=== PATIENT | female | born 1955 | race American Indian/Alaskan Native ===

== ENCOUNTER 2021-07-05 00:50 | Inpatient (IN) | payer BC ==
[~2021-07-05] VITALS: Ht 172.7 cm; Wt 117.9 kg
[2021-07-05 23:35] VITALS: BP 125/65
[2021-07-06] MEDS ORDERED: magnesium 4gm in 100ml NS 100 ML IV PRN (00:45)
[2021-07-06] MEDS ORDERED: PERFLUTREN PROTEIN-A MICROSPHR (Optison) 0.22 MG/ML 3ML VIAL IV PRN (00:45)
[2021-07-06] MEDS ORDERED: potassium CL 10mEq/100ml bag 100 ML IV PRN (00:45)
[2021-07-06] MEDS ORDERED: morphine 2 MG/ML inj. syringe IV PRN (00:45)
[2021-07-06] MEDS ORDERED: potassium Cl 20 mEq SR tablet PO PRN ×2 (00:45)
[2021-07-06] MEDS ORDERED: metoclopramide 5 mg/ml inj IV PRN (00:45)
[2021-07-06] MEDS ORDERED: magnesium Cl slow-release 64mg tablet PO PRN (00:45)
[2021-07-06] MEDS ORDERED: magnesium 2GM in 50ml NS 50 ML IV PRN (00:45)
[2021-07-06] MEDS ORDERED: ondansetron/PF 4mg/2ml inj IV PRN (00:45)
[2021-07-06] MEDS: normal saline 1000ml 1,000 ML IV SCH (01:11)
[2021-07-06 02:00] VITALS: BP 130/74
[2021-07-06 06:00] VITALS: BP 106/63
[2021-07-06 06:34] LABS: ANION GAP 7 (8-16); BLOOD UREA NITROGEN 10 MG/DL (7-18); CALCIUM 8.4 MG/DL (8.5-10.1); CHLORIDE 102 MMOL/L (99-107); GLUCOSE 132 MG/DL (70-104); POTASSIUM 3.8 MMOL/L (3.5-5.1); SODIUM 134 MMOL/L (135-145); TOTAL CARBON DIOXIDE 24.6 MMOL/L (24-32); VANCOMYCIN,RANDOM 13.6 UG/ML; eGFR > 90 ML/MIN
[2021-07-06 06:47] LABS: MAGNESIUM 1.9 MG/DL (1.5-2.4); POTASSIUM 3.8 MMOL/L (3.5-5.1)
[2021-07-06] MEDS: piperacillin/tazo 3.375gm/50ml 50 ML IV SCH ×2 (08:13→16:15)
[2021-07-06] MEDS: docusate sod 100mg capsule PO SCH ×2 (08:13→19:42)
[2021-07-06] MEDS: K and/or MAG REPLACEMENT MC SCH ×2 (08:18→19:50)
[2021-07-06] MEDS ORDERED: GABA300C PO (08:50)
[2021-07-06] MEDS ORDERED: LOSA100T57 PO (08:50)
[2021-07-06] MEDS ORDERED: BUPR-317 PO (08:50)
[2021-07-06] MEDS ORDERED: DULO60CA65 PO (08:50)
[2021-07-06] MEDS ORDERED: OMEP20CA16 PO (08:50)
[2021-07-06] MEDS ORDERED: LEVO100T9 PO (08:50)
[2021-07-06] MEDS ORDERED: AMLO5TAB16 PO (08:50)
[2021-07-06] MEDS ORDERED: CHOL500050 PO (08:50)
[2021-07-06 10:00] VITALS: BP 132/74
[2021-07-06] MEDS ORDERED: FERR325T29 PO (12:42)
[2021-07-06] MEDS ORDERED: GABA600T13 PO (12:42)
[2021-07-06 15:00] VITALS: BP 139/64
[2021-07-06] MEDS: acetaminophen 325mg tablet PO PRN (16:15)
[2021-07-06 18:00] VITALS: BP 131/62
--- NOTE | 2021-07-06 18:10 | NUR ---
Problems reprioritized. Patient report given, questions answered & plan of care reviewed with Katy.
[2021-07-06] MEDS: HYDROcodone/acetaminophen 5mg/325mg tablet PO PRN (19:41)
[2021-07-06] MEDS: enoxaparin 40mg/0.4ml syringe SUBCUT SCH (19:42)
[2021-07-06] MEDS: CefTRIAXone 2gm/D5W 50ml BAG 50 ML IV SCH (19:43)
[2021-07-06] MEDS: diatr meglu/diatrizoate 30ml oral sol.-(3 dose) bottle PO SCH (20:52)
[2021-07-06 22:00] VITALS: BP 142/68
[2021-07-07] VITALS (14 sets, daily range): BP systolic 136–160; BP diastolic 60–85
[2021-07-07 06:18] LABS: BASOPHILS % (AUTO) 0.5 % (0-1); EOSINOPHILS # (AUTO) 0.1 X10'3 (0-0.9); HEMATOCRIT 30.6 % (35.0-45.0); HEMOGLOBIN 10.2 g/dl (12.0-16.0); LYMPHOCYTES # (AUTO) 0.7 X10'3 (1.1-4.8); LYMPHOCYTES % (AUTO) 7.6 % (21-51); MEAN CORPUSCULAR HEMOGLOBIN 30.5 PG (27.0-31.0); MEAN CORPUSCULAR HGB CONC 33.2 g/dL (33.0-36.5); MEAN PLATELET VOLUME 9.8 FL (7.4-10.4); MONOCYTES # (AUTO) 0.5 X10'3 (0-0.9); MONOCYTES % (AUTO) 5.6 % (2-12); NEUTROPHILS # (AUTO) 8.3 X10'3 (1.8-7.7); NEUTROPHILS % (AUTO) 85.3 % (42-75); PLATELET COUNT 221 X10'3 (140-440); RED BLOOD COUNT 3.33 X10'6 (4.20-5.60); RED CELL DISTRIBUTION WIDTH 14.2 % (11.5-14.5); WHITE BLOOD COUNT 9.7 X10'3 (4.5-11.0)
--- NOTE | 2021-07-07 06:20 | NUR ---
Problems reprioritized. Patient report given, questions answered & plan of care reviewed with Westley BROCK .
[2021-07-07 06:50] LABS: ALBUMIN 1.9 G/DL (3.4-5.0); ANION GAP 9 (8-16); BLOOD UREA NITROGEN 9 MG/DL (7-18); BUN/CREATININE RATIO 16.4 (6.6-38.0); CHLORIDE 103 MMOL/L (99-107); CREATININE 0.55 MG/DL (0.40-0.90); GLUCOSE 148 MG/DL (70-104); POTASSIUM 3.6 MMOL/L (3.5-5.1); SODIUM 136 MMOL/L (135-145); TOTAL CARBON DIOXIDE 24.5 MMOL/L (24-32); eGFR > 90 ML/MIN
[2021-07-07] MEDS ORDERED: MIDAZolam 1 MG/ML 5ML VIAL IV ONE (08:00)
[2021-07-07] MEDS ORDERED: fentaNYL/PF 50MCG/1 ML 2ML syringe IV ONE (08:00)
[2021-07-07] MEDS ORDERED: glycopyrrolate 0.2mg/ml inj IV ONE (08:00)
[2021-07-07] MEDS: K and/or MAG REPLACEMENT MC SCH ×2 (08:00→20:00)
[2021-07-07] MEDS: CefTRIAXone 2gm/D5W 50ml BAG 50 ML IV SCH (08:03)
[2021-07-07] MEDS: docusate sod 100mg capsule PO SCH ×2 (08:03→20:00)
[2021-07-07] MEDS: diatr meglu/diatrizoate 30ml oral sol.-(3 dose) bottle PO SCH ×2 (08:03→21:13)
[2021-07-07] MEDS ORDERED: iohexol 300mg/ml 100ml inj. ONE (15:29)
[2021-07-07] MEDS ORDERED: VANCOMYCIN LEVEL IV ONE (19:30)
[2021-07-07] MEDS: enoxaparin 40mg/0.4ml syringe SUBCUT SCH (21:14)
[2021-07-08] MEDS: normal saline 1000ml 1,000 ML IV SCH (00:45)
[2021-07-08 02:09] VITALS: BP 131/59
[2021-07-08 06:00] VITALS: BP 111/82
[2021-07-08] MEDS: docusate sod 100mg capsule PO SCH ×2 (07:34→20:51)
[2021-07-08] MEDS: CefTRIAXone 2gm/D5W 50ml BAG 50 ML IV SCH (07:35)
[2021-07-08] MEDS: K and/or MAG REPLACEMENT MC SCH ×2 (07:40→19:22)
[2021-07-08 10:00] VITALS: BP 139/58
[2021-07-08] MEDS: HYDROcodone/acetaminophen 5mg/325mg tablet PO PRN ×2 (11:28→21:09)
[2021-07-08 12:06] LABS: BASOPHILS % (AUTO) 0.4 % (0-1); EOSINOPHILS % (AUTO) 0.4 % (0-6); HEMATOCRIT 29.7 % (35.0-45.0); HEMOGLOBIN 9.9 g/dl (12.0-16.0); LYMPHOCYTES % (AUTO) 10.6 % (21-51); MEAN CORPUSCULAR HEMOGLOBIN 30.3 PG (27.0-31.0); MEAN CORPUSCULAR HGB CONC 33.4 g/dL (33.0-36.5); MEAN CORPUSCULAR VOLUME 90.7 FL (78-98); MEAN PLATELET VOLUME 9.1 FL (7.4-10.4); MONOCYTES # (AUTO) 0.6 X10'3 (0-0.9); MONOCYTES % (AUTO) 6.3 % (2-12); NEUTROPHILS % (AUTO) 82.3 % (42-75); PLATELET COUNT 244 X10'3 (140-440); RED BLOOD COUNT 3.27 X10'6 (4.20-5.60); RED CELL DISTRIBUTION WIDTH 14.2 % (11.5-14.5); WHITE BLOOD COUNT 9.8 X10'3 (4.5-11.0)
[2021-07-08 12:36] LABS: ALBUMIN 2.1 G/DL (3.4-5.0); ANION GAP 8 (8-16); BLOOD UREA NITROGEN 7 MG/DL (7-18); BUN/CREATININE RATIO 15.2 (6.6-38.0); CALCIUM 8.5 MG/DL (8.5-10.1); CHLORIDE 101 MMOL/L (99-107); CREATININE 0.46 MG/DL (0.40-0.90); GLUCOSE 121 MG/DL (70-104); POTASSIUM 3.5 MMOL/L (3.5-5.1); SODIUM 137 MMOL/L (135-145); TOTAL CARBON DIOXIDE 28.3 MMOL/L (24-32); eGFR > 90 ML/MIN
[2021-07-08 14:00] VITALS: BP 123/52
--- NOTE | 2021-07-08 16:15 | NUR ---
Transaction number: [id number]. Karon Mcconnell. Alena says pt needs PICC line. Neisha Mitchell [phone]
--- NOTE | 2021-07-08 17:47 | NUR ---
Paged Dr Abraham Message: [phone]. Karon Mcconnell. Catarino review [facility]. Neisha [phone] Transaction number: [id number]
[2021-07-08 18:00] VITALS: BP 112/42
--- NOTE | 2021-07-08 18:35 | NUR ---
Problems reprioritized. Patient report given, questions answered & plan of care reviewed with DELMY Vargas.
[2021-07-08] MEDS: enoxaparin 40mg/0.4ml syringe SUBCUT SCH (20:52)
[2021-07-08] MEDS: ferrous sulfate 325mg tablet PO SCH (20:52)
[2021-07-08] MEDS: gabapentin 300mg capsule PO SCH (20:52)
[2021-07-08 22:00] VITALS: BP 132/68
[2021-07-09 02:00] VITALS: BP 137/71
[2021-07-09 05:11] LABS: BASOPHILS # (AUTO) 0.1 X10'3 (0-0.2); BASOPHILS % (AUTO) 0.5 % (0-1); EOSINOPHILS % (AUTO) 0.4 % (0-6); HEMATOCRIT 30.3 % (35.0-45.0); HEMOGLOBIN 10.1 g/dl (12.0-16.0); LYMPHOCYTES # (AUTO) 1.2 X10'3 (1.1-4.8); LYMPHOCYTES % (AUTO) 11.8 % (21-51); MEAN CORPUSCULAR HEMOGLOBIN 30.2 PG (27.0-31.0); MEAN CORPUSCULAR HGB CONC 33.2 g/dL (33.0-36.5); MEAN CORPUSCULAR VOLUME 90.9 FL (78-98); MEAN PLATELET VOLUME 8.8 FL (7.4-10.4); MONOCYTES # (AUTO) 0.8 X10'3 (0-0.9); MONOCYTES % (AUTO) 7.3 % (2-12); NEUTROPHILS # (AUTO) 8.2 X10'3 (1.8-7.7); PLATELET COUNT 247 X10'3 (140-440); RED BLOOD COUNT 3.33 X10'6 (4.20-5.60); RED CELL DISTRIBUTION WIDTH 14.5 % (11.5-14.5); WHITE BLOOD COUNT 10.3 X10'3 (4.5-11.0)
[2021-07-09 05:58] LABS: ALBUMIN 2.1 G/DL (3.4-5.0); ANION GAP 8 (8-16); BLOOD UREA NITROGEN 8 MG/DL (7-18); CALCIUM 8.6 MG/DL (8.5-10.1); CHLORIDE 101 MMOL/L (99-107); CREATININE 0.47 MG/DL (0.40-0.90); GLUCOSE 112 MG/DL (70-104); MAGNESIUM 1.9 MG/DL (1.5-2.4); PHOSPHORUS 3.8 MG/DL (2.3-4.5); POTASSIUM 3.6 MMOL/L (3.5-5.1); SODIUM 137 MMOL/L (135-145); TOTAL CARBON DIOXIDE 27.7 MMOL/L (24-32); eGFR > 90 ML/MIN
[2021-07-09 07:00] VITALS: BP 129/56
[2021-07-09] MEDS ORDERED: levoTHYROXINE 100mcg tablet PO SCH (08:00)
[2021-07-09] MEDS: K and/or MAG REPLACEMENT MC SCH ×2 (08:00→20:00)
[2021-07-09] MEDS: ferrous sulfate 325mg tablet PO SCH ×3 (08:02→21:47)
[2021-07-09] MEDS: gabapentin 300mg capsule PO SCH ×3 (08:02→21:47)
[2021-07-09] MEDS: cholecalciferol (vitamin D3) 1,000 unit (25mcg) tablet PO SCH (08:02)
[2021-07-09] MEDS: amLODIPine 5mg tablet PO SCH (08:03)
[2021-07-09] MEDS: pantoprazole 40mg Tablet.DR PO SCH (08:03)
[2021-07-09] MEDS: duloxetine 30mg CAPSULE.DR PO SCH (08:03)
[2021-07-09] MEDS: losartan 50mg tablet PO SCH (08:04)
[2021-07-09] MEDS: docusate sod 100mg capsule PO SCH ×2 (08:04→20:00)
[2021-07-09] MEDS: buPROPion SR 150mg tablet PO SCH (08:04)
[2021-07-09] MEDS: CefTRIAXone 2gm/D5W 50ml BAG 50 ML IV SCH (08:05)
[2021-07-09] MEDS: HYDROcodone/acetaminophen 5mg/325mg tablet PO PRN ×2 (10:05→21:58)
[2021-07-09 11:40] VITALS: BP 106/53
[2021-07-09 14:57] VITALS: BP 107/56
[2021-07-09 20:00] VITALS: BP 131/71
[2021-07-09] MEDS: enoxaparin 40mg/0.4ml syringe SUBCUT SCH (21:51)
[2021-07-10] MEDS: normal saline 1000ml 1,000 ML IV SCH ×2 (00:45→19:11)
--- NOTE | 2021-07-10 06:30 | NUR ---
Patient in room 312. I have received report from DELMY SMALLS and had the opportunity to ask questions and assume patient care.
[2021-07-10] MEDS: levoTHYROXINE 100mcg tablet PO SCH (07:00)
[2021-07-10 07:01] LABS: ANION GAP 3 (8-16); BLOOD UREA NITROGEN 6 MG/DL (7-18); BUN/CREATININE RATIO 16.2 (6.6-38.0); CALCIUM 8.3 MG/DL (8.5-10.1); CHLORIDE 104 MMOL/L (99-107); CREATININE 0.37 MG/DL (0.40-0.90); GLUCOSE 105 MG/DL (70-104); PHOSPHORUS 4.3 MG/DL (2.3-4.5); POTASSIUM 3.7 MMOL/L (3.5-5.1); SODIUM 137 MMOL/L (135-145); eGFR > 90 ML/MIN
[2021-07-10 07:07] LABS: BASOPHILS % (AUTO) 0.5 % (0-1); EOSINOPHILS # (AUTO) 0.1 X10'3 (0-0.9); EOSINOPHILS % (AUTO) 1.1 % (0-6); HEMATOCRIT 30.6 % (35.0-45.0); HEMOGLOBIN 10.2 g/dl (12.0-16.0); LYMPHOCYTES # (AUTO) 1.1 X10'3 (1.1-4.8); LYMPHOCYTES % (AUTO) 13.8 % (21-51); MEAN CORPUSCULAR HEMOGLOBIN 30.3 PG (27.0-31.0); MEAN CORPUSCULAR HGB CONC 33.2 g/dL (33.0-36.5); MEAN CORPUSCULAR VOLUME 91.4 FL (78-98); MONOCYTES # (AUTO) 0.6 X10'3 (0-0.9); MONOCYTES % (AUTO) 7.6 % (2-12); NEUTROPHILS # (AUTO) 6.4 X10'3 (1.8-7.7); PLATELET COUNT 237 X10'3 (140-440); RED BLOOD COUNT 3.35 X10'6 (4.20-5.60); RED CELL DISTRIBUTION WIDTH 14.6 % (11.5-14.5); WHITE BLOOD COUNT 8.3 X10'3 (4.5-11.0)
[2021-07-10] MEDS: K and/or MAG REPLACEMENT MC SCH ×2 (08:00→19:08)
[2021-07-10] MEDS: pantoprazole 40mg Tablet.DR PO SCH (08:08)
[2021-07-10] MEDS: cholecalciferol (vitamin D3) 1,000 unit (25mcg) tablet PO SCH (08:09)
[2021-07-10] MEDS: amLODIPine 5mg tablet PO SCH (08:09)
[2021-07-10] MEDS: docusate sod 100mg capsule PO SCH ×2 (08:09→20:51)
[2021-07-10] MEDS: duloxetine 30mg CAPSULE.DR PO SCH (08:10)
[2021-07-10] MEDS: gabapentin 300mg capsule PO SCH ×3 (08:10→20:53)
[2021-07-10] MEDS: buPROPion SR 150mg tablet PO SCH (08:10)
[2021-07-10] MEDS: CefTRIAXone 2gm/D5W 50ml BAG 50 ML IV SCH (08:11)
[2021-07-10] MEDS: ferrous sulfate 325mg tablet PO SCH ×3 (08:11→20:53)
[2021-07-10] MEDS: losartan 50mg tablet PO SCH (08:11)
--- NOTE | 2021-07-10 08:23 | NUR ---
Initial: Pt admitted w/ sepsis and infectious endocarditis per EMR. Pt currently on Heart healthy diet w/ avg intake 40% x 11 meals not meeting needs. Pt could benefit from Ensure Enlive TID at this time to help meet nutrient needs. Pt noted w/ bruising/open area on buttocks, pending WOC assessment. LBM 2/7 receiving routine colace, recommend additional bowel care per MD discretion if true 6 days constipation. Will continue to monitor. Recs: 1. Liberalize to Regular diet 2. Ensure Enlive TID; pending MD verification 3. Routine bowel care; 6 days constipation 4. Weekly wts Addendum: 07/10/21 at [address] Amended: Links added.
[2021-07-10 09:27] VITALS: BP 125/56
[2021-07-10 11:15] VITALS: BP 117/54
[2021-07-10 16:46] VITALS: BP 135/65
[2021-07-10 18:00] VITALS: BP 135/65
--- NOTE | 2021-07-10 18:10 | NUR ---
Problems reprioritized. Patient report given, questions answered & plan of care reviewed with JUSTIN BROCK
[2021-07-10] MEDS: enoxaparin 40mg/0.4ml syringe SUBCUT SCH (20:52)
[2021-07-10] MEDS: HYDROcodone/acetaminophen 5mg/325mg tablet PO PRN (21:40)
[2021-07-10 22:00] VITALS: BP 132/72
[2021-07-11 02:00] VITALS: BP 135/64
[2021-07-11 06:00] VITALS: BP 137/74
--- NOTE | 2021-07-11 06:37 | NUR ---
Problems reprioritized. Patient report given, questions answered & plan of care reviewed with
[2021-07-11] MEDS: gabapentin 300mg capsule PO SCH ×3 (07:29→21:13)
[2021-07-11] MEDS: buPROPion SR 150mg tablet PO SCH (07:30)
[2021-07-11] MEDS: losartan 50mg tablet PO SCH (07:30)
[2021-07-11] MEDS: docusate sod 100mg capsule PO SCH ×2 (07:30→20:00)
[2021-07-11] MEDS: ferrous sulfate 325mg tablet PO SCH ×3 (07:30→21:13)
[2021-07-11] MEDS: duloxetine 30mg CAPSULE.DR PO SCH (07:30)
[2021-07-11] MEDS: levoTHYROXINE 100mcg tablet PO SCH (07:31)
[2021-07-11] MEDS: amLODIPine 5mg tablet PO SCH (07:31)
[2021-07-11] MEDS: CefTRIAXone 2gm/D5W 50ml BAG 50 ML IV SCH (07:31)
[2021-07-11] MEDS: pantoprazole 40mg Tablet.DR PO SCH (07:31)
[2021-07-11] MEDS: acetaminophen 325mg tablet PO PRN ×2 (07:45→16:34)
[2021-07-11] MEDS: K and/or MAG REPLACEMENT MC SCH ×2 (08:00→20:00)
[2021-07-11 08:21] LABS: BASOPHILS % (AUTO) 0.4 % (0-1); EOSINOPHILS # (AUTO) 0.1 X10'3 (0-0.9); EOSINOPHILS % (AUTO) 1.3 % (0-6); HEMATOCRIT 30.3 % (35.0-45.0); LYMPHOCYTES # (AUTO) 1.1 X10'3 (1.1-4.8); LYMPHOCYTES % (AUTO) 14.3 % (21-51); MEAN CORPUSCULAR HEMOGLOBIN 29.9 PG (27.0-31.0); MEAN CORPUSCULAR HGB CONC 32.9 g/dL (33.0-36.5); MEAN PLATELET VOLUME 8.8 FL (7.4-10.4); MONOCYTES # (AUTO) 0.6 X10'3 (0-0.9); MONOCYTES % (AUTO) 7.3 % (2-12); NEUTROPHILS # (AUTO) 5.8 X10'3 (1.8-7.7); NEUTROPHILS % (AUTO) 76.7 % (42-75); PLATELET COUNT 239 X10'3 (140-440); RED BLOOD COUNT 3.33 X10'6 (4.20-5.60); RED CELL DISTRIBUTION WIDTH 14.8 % (11.5-14.5); WHITE BLOOD COUNT 7.6 X10'3 (4.5-11.0)
[2021-07-11 08:36] LABS: ANION GAP 7 (8-16); BLOOD UREA NITROGEN 6 MG/DL (7-18); BUN/CREATININE RATIO 12.8 (6.6-38.0); CALCIUM 8.4 MG/DL (8.5-10.1); CHLORIDE 104 MMOL/L (99-107); CREATININE 0.47 MG/DL (0.40-0.90); GLUCOSE 99 MG/DL (70-104); PHOSPHORUS 3.9 MG/DL (2.3-4.5); POTASSIUM 3.8 MMOL/L (3.5-5.1); SODIUM 140 MMOL/L (135-145); TOTAL CARBON DIOXIDE 28.6 MMOL/L (24-32); eGFR > 90 ML/MIN
--- NOTE | 2021-07-11 09:03 | NUR ---
Sent to Dr. Jarad Mcconnell: no BM since 07/05. Please order miralax and Dulcolax supp. thank you. Shayy BROCK [phone]
[2021-07-11] MEDS ORDERED: bisacodyl 10mg suppository rectal RC STA (09:04)
[2021-07-11] MEDS ORDERED: bisacodyl 10mg suppository rectal RC PRN (09:05)
[2021-07-11] MEDS: polyethylene glycol 3350 17gm powd pack PO SCH (09:18)
[2021-07-11] MEDS: cholecalciferol (vitamin D3) 1,000 unit (25mcg) tablet PO SCH (09:19)
[2021-07-11] MEDS: nystatin 15 GM powder TP SCH ×2 (13:00→21:32)
[2021-07-11] MEDS ORDERED: iohexol 350MG/ML 100ml bottle IV ONE (14:41)
[2021-07-11 14:54] LABS: APTT 30 SECONDS (22-32)
[2021-07-11 15:00] VITALS: BP 128/64
[2021-07-11 15:05] LABS: ALANINE AMINOTRANSFERASE 31 U/L (12-78); ALBUMIN/GLOBULIN RATIO 0.5 (1.1-1.5); ANION GAP 2 (8-16); ASPARTATE AMINO TRANSFERASE 21 U/L (10-37); BILIRUBIN,TOTAL 0.3 MG/DL (0.1-1.0); BLOOD UREA NITROGEN 6 MG/DL (7-18); BUN/CREATININE RATIO 11.5 (6.6-38.0); CALCIUM 8.3 MG/DL (8.5-10.1); CHLORIDE 105 MMOL/L (99-107); CREATININE 0.52 MG/DL (0.40-0.90); GLUCOSE 182 MG/DL (70-104); POTASSIUM 3.9 MMOL/L (3.5-5.1); SODIUM 137 MMOL/L (135-145); TOTAL CARBON DIOXIDE 29.7 MMOL/L (24-32); TOTAL PROTEIN 6.1 G/DL (6.4-8.2); eGFR > 90 ML/MIN
--- NOTE | 2021-07-11 15:23 | NUR ---
Called for stroke alert new onset left arm weakness, patient states it started about 8 am
[2021-07-11] MEDS: enoxaparin 40mg/0.4ml syringe SUBCUT SCH (20:00)
[2021-07-11 22:00] VITALS: BP 137/61
[2021-07-11] MEDS: HYDROcodone/acetaminophen 5mg/325mg tablet PO PRN (23:02)
[2021-07-12] MEDS: normal saline 1000ml 1,000 ML IV SCH (00:45)
[2021-07-12 02:00] VITALS: BP 124/63
[2021-07-12] MEDS: HYDROcodone/acetaminophen 5mg/325mg tablet PO PRN ×2 (04:11→09:59)
[2021-07-12 06:00] VITALS: BP 129/67
[2021-07-12] MEDS: levoTHYROXINE 100mcg tablet PO SCH (07:07)
[2021-07-12 07:19] LABS: PHOSPHORUS 4.4 MG/DL (2.3-4.5)
[2021-07-12] MEDS: CefTRIAXone 2gm/D5W 50ml BAG 50 ML IV SCH (08:16)
[2021-07-12] MEDS: duloxetine 30mg CAPSULE.DR PO SCH (08:17)
[2021-07-12] MEDS: gabapentin 300mg capsule PO SCH ×2 (08:17→15:29)
[2021-07-12] MEDS: losartan 50mg tablet PO SCH (08:17)
[2021-07-12] MEDS: docusate sod 100mg capsule PO SCH (08:17)
[2021-07-12] MEDS: amLODIPine 5mg tablet PO SCH (08:18)
[2021-07-12] MEDS: cholecalciferol (vitamin D3) 1,000 unit (25mcg) tablet PO SCH (08:18)
[2021-07-12] MEDS: polyethylene glycol 3350 17gm powd pack PO SCH (08:18)
[2021-07-12] MEDS: ferrous sulfate 325mg tablet PO SCH ×2 (08:18→15:29)
[2021-07-12] MEDS: buPROPion SR 150mg tablet PO SCH (08:18)
[2021-07-12] MEDS: K and/or MAG REPLACEMENT MC SCH (08:24)
[2021-07-12] MEDS: pantoprazole 40mg Tablet.DR PO SCH (08:58)
[2021-07-12] MEDS: nystatin 15 GM powder TP SCH ×2 (08:58→13:00)
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
[2021-07-12 10:00] VITALS: BP 140/59
--- NOTE | 2021-07-12 12:28 | NUR ---
O2 Sat at rest on room air:_967__% If below 89%: Recovery O2 Sat at rest on ___LPM:___%:___% via (mask/nasal cannula, etc..) No further documentation is necessary. If O2 Sat did not drop below 89% on room air,ambulate patient on room air. O2 Sat while ambulating on room air:_91 __% Recovery O2 Sat while ambulating on ___LPM:___% No further documentation is necessary. If patient does not drop below 89% while ambulating, he/she does not qualify for home O2.
[2021-07-12] MEDS ORDERED: GADOTERATE MEGLUMINE 7.5 MMOL/15 ML VIAL IV ONE (12:38)
[2021-07-12] MEDS ORDERED: LACT1CAP26 PO (13:41)
--- NOTE | 2021-07-12 15:42 | NUR ---
PT STABLE FOR DISCHARGE PER MD. PICC LINE PLACEMENT FOR AT HOME INFUSION OF ABX. PT GIVEN ADDRESS TO [employer] AND [employer] DIRECTIONS SET AND DIRECTIONS WERE GIVEN. DISCHARGE AND FOLLOW UP INSTRUCTIONS REVIEWED AND APPROPRIATE PAPERWORK SIGNED. PT WAS ACCOMPANIED TO A PRIVATE VEHICLE BY HOSPITAL STAFF. PT WAS DISCHARGED TO HER HOME.
== END 2021-07-12 15:30 | disposition home or self-care (01) | DRG 871 ==
LOC: MED 3N 00:50 → UNDOADMIN 22:58 → MED 3N 22:58
PROVIDERS: ADMIT Internal Medicine; ATTEND Family Medicine
PROC: BW211ZZ Computerized Tomography (CT Scan) of Abdomen and Pelvis using Low Osmolar Contrast (ICD-10-PCS; 2021-07-07)
PROC: B3251ZZ Computerized Tomography (CT Scan) of Bilateral Common Carotid Arteries using Low Osmolar Contrast (ICD-10-PCS; 2021-07-11)
PROC: B32G1ZZ Computerized Tomography (CT Scan) of Bilateral Vertebral Arteries using Low Osmolar Contrast (ICD-10-PCS; 2021-07-11)
PROC: B32R1ZZ Computerized Tomography (CT Scan) of Intracranial Arteries using Low Osmolar Contrast (ICD-10-PCS; 2021-07-11)
PROC: B3281ZZ Computerized Tomography (CT Scan) of Bilateral Internal Carotid Arteries using Low Osmolar Contrast (ICD-10-PCS; 2021-07-11)
PROC: 02HV33Z Insertion of Infusion Device into Superior Vena Cava, Percutaneous Approach (ICD-10-PCS; principal; 2021-07-12)
PROC: B548ZZA Ultrasonography of Superior Vena Cava, Guidance (ICD-10-PCS; 2021-07-12)
DX: A40.9 Streptococcal sepsis, unspecified (principal); I33.0 Acute and subacute infective endocarditis; J98.11 Atelectasis; E03.9 Hypothyroidism, unspecified; E78.5 Hyperlipidemia, unspecified; G62.9 Polyneuropathy, unspecified; R26.89 Other abnormalities of gait and mobility; Z60.2 Problems related to living alone; D73.5 Infarction of spleen; R47.1 Dysarthria and anarthria; F17.210 Nicotine dependence, cigarettes, uncomplicated; F32.A Depression, unspecified; I10 Essential (primary) hypertension; K21.9 Gastro-esophageal reflux disease without esophagitis; Z87.440 Personal history of urinary (tract) infections; Z90.710 Acquired absence of both cervix and uterus; Z95.2 Presence of prosthetic heart valve; Z98.84 Bariatric surgery status; Z98.42 Cataract extraction status, left eye; Z98.41 Cataract extraction status, right eye; Z79.899 Other long term (current) drug therapy
CPT/HCPCS: 36415; 36569; 70450; 70496; 70498; 70551; 70553; 74177; 76942; 80048; 80053; 80202; 83605; 83735; 84100; 84132; 84443; 85025; 85610; 85651; 85730; 87040; 87077; 87081; 87186; 93306; 93312; 93325; 94760; 94799; 97110; 97116; 97161; 97164; 97530; A9575; G0378; J0696; J1650; J2250; J2270; J2405; J2543; J2765; J3010; J3370; J3490; J7030; Q9963; Q9967

== ENCOUNTER 2021-09-05 20:54 | Inpatient (IN) | payer BC ==
[~2021-09-05] VITALS: Ht 172.7 cm; Wt 114.0 kg
[~2021-09-05 20:54] MED LIST: AMLO5TAB16 PO; BUPR-317 PO; CHOL500050 PO; DULO60CA65 PO; FERR325T29 PO; GABA600T13 PO; LACT1CAP26 PO; LEVO100T9 PO; LOSA100T57 PO; OMEP20CA16 PO
[2021-09-05] MEDS ORDERED: heparin 25,000 UNIT/250ml bag 250 ML IV SCH (21:35)
[2021-09-05 22:13] LABS: APTT 31 SECONDS (22-32)
[2021-09-05] MEDS ORDERED: heparin 10,000 units/1 ML INJ IV ONE (22:55)
[2021-09-05] MEDS: heparin 25,000 UNIT/250ml bag 250 ML IV SCH (23:19)
[2021-09-05] MEDS: heparin 10,000 units/1 ML INJ IV PRN (23:20)
[2021-09-06] VITALS (7 sets, daily range): BP systolic 107–144; BP diastolic 47–71
[2021-09-06] MEDS ORDERED: acetaminophen 650mg rectal suppository RC PRN (00:45)
[2021-09-06] MEDS ORDERED: HYDROcodone/acetaminophen 5mg/325mg tablet PO PRN (00:45)
[2021-09-06] MEDS ORDERED: ondansetron/PF 4mg/2ml inj IV PRN (00:45)
[2021-09-06] MEDS ORDERED: ondansetron 4mg rapidly disintigrating tab PO PRN (00:45)
[2021-09-06] MEDS ORDERED: morphine 2 MG/ML inj. syringe IV PRN ×2 (00:45)
[2021-09-06] MEDS ORDERED: HYDROcodone/acetaminophen 10/325mg tab PO PRN (00:45)
[2021-09-06] MEDS ORDERED: diphenhydrAMINE 50 mg/ml inj IV PRN (00:45)
[2021-09-06] MEDS ORDERED: normal saline 1000ml 1,000 ML IV SCH (00:45)
[2021-09-06] MEDS ORDERED: mag hydrox/Alum hydrox/simeth 30ml oral suspension PO PRN (00:45)
[2021-09-06] MEDS ORDERED: diphenhydrAMINE 25mg capsule PO PRN (00:45)
[2021-09-06] MEDS ORDERED: acetaminophen 325mg tablet PO PRN (00:45)
[2021-09-06 01:38] LABS: CLARITY,URINE CLEAR (Clear); COLOR,URINE YELLOW (Yellow); GLUCOSE, URINE NEGATIVE (Neg); KETONES,URINE NEGATIVE (Neg); LEUKOCYTE ESTERASE ,URINE NEGATIVE (Neg); NITRITES, URINE NEGATIVE (Neg); OCCULT BLOOD,URINE NEGATIVE (Neg); PROTEIN,URINE NEGATIVE (Neg)
[2021-09-06] MEDS ORDERED: ASPI-1071 PO (01:39)
[2021-09-06 01:43] LABS: UA COLLECTION TYPE URINAL
[2021-09-06 01:46] LABS: HEMOGLOBIN A1C 5.5 % (4.5-6.2)
[2021-09-06 01:47] LABS: D-DIMER 2.71 MG/L FEU (0-0.50)
[2021-09-06 02:00] LABS: CREATINE KINASE 21 U/L (26-192); LIPASE < 50 U/L (73-393); MAGNESIUM 2.1 MG/DL (1.5-2.4)
[2021-09-06] MEDS: acetaminophen 325mg tablet PO PRN ×2 (05:01→17:11)
--- NOTE | 2021-09-06 06:24 | NUR ---
Problems reprioritized. Patient report given, questions answered & plan of care reviewed with DELMY Bourne.
[2021-09-06] MEDS ORDERED: buproprion 150mg XL (24-hour) tablet PO SCH (08:00)
[2021-09-06] MEDS ORDERED: losartan 50mg tablet PO SCH (08:00)
[2021-09-06] MEDS ORDERED: amLODIPine 5mg tablet PO SCH (08:00)
[2021-09-06] MEDS: nitroGLYCERIN 0.2mg/hour patch TD SCH (08:00)
[2021-09-06] MEDS: heparin 10,000 units/1 ML INJ IV PRN ×2 (08:04→16:50)
[2021-09-06] MEDS ORDERED: MESSAGE TO NURSING PO ONE ×5 (09:05→10:00)
[2021-09-06] MEDS ORDERED: MESSAGE TO PHARMACY IJ ONE (09:05)
[2021-09-06] MEDS ORDERED: ALPRAZolam 0.5mg tablet PO ONE (09:10)
[2021-09-06] MEDS: docusate sod 100mg capsule PO SCH ×2 (09:33→20:36)
[2021-09-06] MEDS: levoTHYROXINE 100mcg tablet PO SCH (09:34)
[2021-09-06] MEDS: duloxetine 30mg CAPSULE.DR PO SCH (09:34)
[2021-09-06] MEDS: pantoprazole 40mg Tablet.DR PO SCH (09:36)
[2021-09-06] MEDS: aspirin 81mg, enteric-coated 1 TAB TABLET.DR PO SCH (09:36)
[2021-09-06] MEDS: ferrous sulfate 325mg tablet PO SCH ×3 (09:36→20:36)
[2021-09-06] MEDS: buPROPion SR 150mg tablet PO SCH (09:37)
[2021-09-06] MEDS: furosemide 20 MG/2 ML vial IV SCH ×2 (09:37→11:57)
[2021-09-06] MEDS: gabapentin 300mg capsule PO SCH ×3 (09:37→21:00)
[2021-09-06] MEDS ORDERED: magnesium 4gm in 100ml NS 100 ML IV PRN (10:05)
[2021-09-06] MEDS ORDERED: potassium CL 10mEq/100ml bag 100 ML IV PRN (10:05)
[2021-09-06] MEDS ORDERED: potassium Cl 20 mEq SR tablet PO PRN (10:05)
[2021-09-06] MEDS ORDERED: magnesium Cl slow-release 64mg tablet PO PRN (10:05)
--- NOTE | 2021-09-06 11:45 | NUR ---
Patient in room PCU 3024. I have received report from alphonse BROCK and had the opportunity to ask questions and assume patient care.
[2021-09-06] MEDS: piperacillin/tazo 4.5gm/100ml 100 ML IV SCH ×2 (11:57→20:36)
[2021-09-06] MEDS: normal saline 1000ml 1,000 ML IV SCH (15:10)
[2021-09-06] MEDS: amLODIPine 5mg tablet PO SCH (15:10)
[2021-09-06] MEDS: heparin 25,000 UNIT/250ml bag 250 ML IV SCH (16:11)
--- NOTE | 2021-09-06 18:37 | NUR ---
Pt a/ox4. Pt calls appropriately, ambulating to BR. Steady on feet. Tele: NSR. No c/o pain, no chest pain. Good appetite, good oral intake. Skin intact, no open areas, no redness noted. Sister at bedside. Pt is pleasant and cooperative with care. Pt gave self a sponge bath in bathroom.
--- NOTE | 2021-09-06 18:57 | NUR ---
Problems reprioritized. Patient report given, questions answered & plan of care reviewed with Morena BROCK, patient stable at transfer of care.
[2021-09-06] MEDS: K and/or MAG REPLACEMENT MC SCH (20:00)
[2021-09-06 20:44] LABS: ABG BASE EXCESS 3.2 mmol/L (-2.0-2.0); ABG HCO3 27.1 mmol/L (22.0-26.0); ABG OXYGEN SATURATION 93.1 % (94-97); ABG PO2 (T) 68.7 mmHg (75.0-100.0); ALLEN'S TEST POSITIVE; FCOHb 0.3 % (0.0-3.9); FO2Hb 92.8 % (94-97); PATIENT TEMPERATURE 36.9; TOTAL HEMOGLOBIN 9.5 G/dl (12.0-16.0)
[2021-09-07] MEDS: piperacillin/tazo 4.5gm/100ml 100 ML IV SCH ×4 (01:51→23:59)
[2021-09-07 02:00] VITALS: BP 119/61
[2021-09-07 02:04] LABS: BASOPHILS % (AUTO) 0.6 % (0-1); EOSINOPHILS # (AUTO) 0.1 X10'3 (0-0.9); EOSINOPHILS % (AUTO) 2.1 % (0-6); HEMATOCRIT 25.6 % (35.0-45.0); HEMOGLOBIN 8.5 g/dl (12.0-16.0); LYMPHOCYTES # (AUTO) 2.1 X10'3 (1.1-4.8); LYMPHOCYTES % (AUTO) 31.5 % (21-51); MEAN CORPUSCULAR HEMOGLOBIN 30.1 PG (27.0-31.0); MEAN CORPUSCULAR HGB CONC 33.1 g/dL (33.0-36.5); MEAN CORPUSCULAR VOLUME 91.1 FL (78-98); MEAN PLATELET VOLUME 8.9 FL (7.4-10.4); MONOCYTES # (AUTO) 0.5 X10'3 (0-0.9); MONOCYTES % (AUTO) 7.4 % (2-12); NEUTROPHILS # (AUTO) 3.8 X10'3 (1.8-7.7); NEUTROPHILS % (AUTO) 58.4 % (42-75); PLATELET COUNT 196 X10'3 (140-440); RED BLOOD COUNT 2.81 X10'6 (4.20-5.60); RED CELL DISTRIBUTION WIDTH 16.1 % (11.5-14.5); WHITE BLOOD COUNT 6.6 X10'3 (4.5-11.0)
[2021-09-07 02:17] LABS: ALANINE AMINOTRANSFERASE 10 U/L (12-78); ALBUMIN 2.7 G/DL (3.4-5.0); ALBUMIN/GLOBULIN RATIO 0.8 (1.1-1.5); ALKALINE PHOSPHATASE 121 IU/L (46-116); ANION GAP 12 (8-16); ASPARTATE AMINO TRANSFERASE 11 U/L (10-37); BILIRUBIN,TOTAL 0.5 MG/DL (0.1-1.0); BLOOD UREA NITROGEN 11 MG/DL (7-18); BUN/CREATININE RATIO 16.9 (6.6-38.0); CALCIUM 8.5 MG/DL (8.5-10.1); CHLORIDE 105 MMOL/L (99-107); CHOL/HDL RATIO 2.9 (0.00-4.99); CHOLESTEROL 167 MG/DL (0-200); CREATININE 0.65 MG/DL (0.40-0.90); GLUCOSE 107 MG/DL (70-104); HDL CHOLESTEROL 57 MG/DL (35-60); LDL CHOLESTEROL 96 MG/DL (50-100); MAGNESIUM 2.2 MG/DL (1.5-2.4); PHOSPHORUS 5.3 MG/DL (2.3-4.5); POTASSIUM 3.4 MMOL/L (3.5-5.1); SODIUM 141 MMOL/L (135-145); TOTAL CARBON DIOXIDE 23.7 MMOL/L (24-32); TOTAL PROTEIN 6.3 G/DL (6.4-8.2); TRIGLYCERIDES 96 MG/DL (20-135); eGFR > 90 ML/MIN
[2021-09-07 06:00] VITALS: BP 158/72
[2021-09-07] MEDS: heparin 25,000 UNIT/250ml bag 250 ML IV SCH ×2 (06:27→15:42)
[2021-09-07] MEDS: K and/or MAG REPLACEMENT MC SCH ×2 (08:00→20:30)
[2021-09-07] MEDS: nitroGLYCERIN 0.2mg/hour patch TD SCH (08:00)
[2021-09-07] MEDS: normal saline 1000ml 1,000 ML IV SCH (08:45)
[2021-09-07] MEDS: docusate sod 100mg capsule PO SCH ×2 (09:10→19:36)
[2021-09-07] MEDS: aspirin 81mg, enteric-coated 1 TAB TABLET.DR PO SCH (09:10)
[2021-09-07] MEDS: ferrous sulfate 325mg tablet PO SCH ×3 (09:10→19:36)
[2021-09-07] MEDS: levoTHYROXINE 100mcg tablet PO SCH (09:10)
[2021-09-07] MEDS: gabapentin 300mg capsule PO SCH ×3 (09:11→19:36)
[2021-09-07] MEDS: duloxetine 30mg CAPSULE.DR PO SCH (09:11)
[2021-09-07] MEDS: pantoprazole 40mg Tablet.DR PO SCH (09:12)
[2021-09-07] MEDS: buPROPion SR 150mg tablet PO SCH (09:12)
[2021-09-07] MEDS: amLODIPine 5mg tablet PO SCH (09:14)
[2021-09-07] MEDS: furosemide 20 MG/2 ML vial IV SCH (09:24)
[2021-09-07] MEDS: potassium Cl 20 mEq SR tablet PO PRN ×3 (10:56→19:36)
[2021-09-07 11:00] VITALS: BP 138/67
[2021-09-07] MEDS ORDERED: verapamil 2.5 mg/ml inj IV ONE (12:43)
[2021-09-07] MEDS ORDERED: fentaNYL/PF 50MCG/1 ML 2ML syringe ONE (12:44)
[2021-09-07] MEDS ORDERED: iohexol 350 MG/ML 50ML vial IV ONE (12:44)
[2021-09-07] MEDS ORDERED: nitroGLYCERIN-Tridil 50MG/D5W 250 ML IV ONE (12:44)
[2021-09-07] MEDS ORDERED: iohexol 350MG/ML 100ml bottle IV ONE (12:44)
[2021-09-07] MEDS ORDERED: heparin 1,000unit/ml 10ml vial 10 ML ONE (12:44)
[2021-09-07] MEDS ORDERED: midazolam 1 mg/ML 2ml injection ONE ×2 (12:44→13:24)
[2021-09-07] MEDS ORDERED: LIDOcaine 1% (10mg/ml)w/preservative inj. 20ml MDV ONE (12:46)
[2021-09-07 15:00] VITALS: BP 146/76
--- NOTE | 2021-09-07 16:47 | NUR ---
paged Dr. Abraham regarding pt PTT >139. Message: [phone], Jayesh Brantley. pts PTT was >139. I stopped infusion per protocol. Tayla [facility] [phone].
[2021-09-07 18:00] VITALS: BP 138/68
[2021-09-07] MEDS ORDERED: pneumococcal 23-VAL P-sac vacc 25 mcg/0.5ml vial IMVAC ONE (18:05)
--- NOTE | 2021-09-07 18:33 | NUR ---
Problems reprioritized. Patient report given, questions answered & plan of care reviewed with DELMY Berg.
[2021-09-07] MEDS: magnesium hydroxide 30ml (MOM) UD suspension PO PRN (19:35)
[2021-09-07] MEDS: temazepam 15mg capsule PO PRN (19:43)
[2021-09-07 22:00] VITALS: BP 160/72
[2021-09-08 02:00] VITALS: BP 148/57
[2021-09-08 04:16] LABS: ALANINE AMINOTRANSFERASE 11 U/L (12-78); ALBUMIN/GLOBULIN RATIO 0.8 (1.1-1.5); ALKALINE PHOSPHATASE 127 IU/L (46-116); ANION GAP 9 (8-16); ASPARTATE AMINO TRANSFERASE 10 U/L (10-37); BILIRUBIN,TOTAL 0.4 MG/DL (0.1-1.0); BLOOD UREA NITROGEN 11 MG/DL (7-18); BUN/CREATININE RATIO 16.4 (6.6-38.0); CALCIUM 8.6 MG/DL (8.5-10.1); CHLORIDE 104 MMOL/L (99-107); CREATININE 0.67 MG/DL (0.40-0.90); GLUCOSE 97 MG/DL (70-104); MAGNESIUM 2.4 MG/DL (1.5-2.4); PHOSPHORUS 4.2 MG/DL (2.3-4.5); POTASSIUM 3.8 MMOL/L (3.5-5.1); SODIUM 138 MMOL/L (135-145); TOTAL CARBON DIOXIDE 25.4 MMOL/L (24-32); TOTAL PROTEIN 6.8 G/DL (6.4-8.2); eGFR 89 ML/MIN
[2021-09-08] MEDS: heparin 10,000 units/1 ML INJ IV PRN ×3 (04:54→19:43)
[2021-09-08 06:00] VITALS: BP 140/69
[2021-09-08 06:05] LABS: BASOPHILS % (AUTO) 0.6 % (0-1); EOSINOPHILS # (AUTO) 0.1 X10'3 (0-0.9); EOSINOPHILS % (AUTO) 2.3 % (0-6); HEMATOCRIT 26.2 % (35.0-45.0); HEMOGLOBIN 8.9 g/dl (12.0-16.0); LYMPHOCYTES # (AUTO) 1.5 X10'3 (1.1-4.8); LYMPHOCYTES % (AUTO) 25.5 % (21-51); MEAN CORPUSCULAR HEMOGLOBIN 30.4 PG (27.0-31.0); MEAN CORPUSCULAR HGB CONC 33.9 g/dL (33.0-36.5); MEAN CORPUSCULAR VOLUME 89.8 FL (78-98); MEAN PLATELET VOLUME 9.1 FL (7.4-10.4); MONOCYTES # (AUTO) 0.5 X10'3 (0-0.9); MONOCYTES % (AUTO) 8.4 % (2-12); NEUTROPHILS # (AUTO) 3.7 X10'3 (1.8-7.7); NEUTROPHILS % (AUTO) 63.2 % (42-75); PLATELET COUNT 210 X10'3 (140-440); RED BLOOD COUNT 2.91 X10'6 (4.20-5.60); RED CELL DISTRIBUTION WIDTH 16.2 % (11.5-14.5); WHITE BLOOD COUNT 5.9 X10'3 (4.5-11.0)
[2021-09-08] MEDS: sod chloride 0.9% 10ml flush syringe IV SCH (08:00)
[2021-09-08] MEDS: K and/or MAG REPLACEMENT MC SCH ×2 (08:00→19:05)
[2021-09-08] MEDS: furosemide 20 MG/2 ML vial IV SCH (08:12)
[2021-09-08] MEDS: piperacillin/tazo 4.5gm/100ml 100 ML IV SCH ×2 (08:12→16:14)
[2021-09-08] MEDS ORDERED: insulin glargine (Lantus) pen - multi-dose SQ PRN (08:25)
[2021-09-08] MEDS ORDERED: MESSAGE TO PHARMACY IJ ONE (08:25)
[2021-09-08] MEDS ORDERED: MESSAGE TO NURSING PO ONE (08:25)
[2021-09-08] MEDS ORDERED: dextrose 50%-water 50ml dispensing syringe IV PRN (08:25)
[2021-09-08] MEDS ORDERED: Insulin Reg/NS 100units/100mL 100 ML IV SCH (08:25)
[2021-09-08] MEDS: normal saline 1000ml 1,000 ML IV SCH (08:26)
[2021-09-08] MEDS: duloxetine 30mg CAPSULE.DR PO SCH (08:27)
[2021-09-08] MEDS: pantoprazole 40mg Tablet.DR PO SCH (08:27)
[2021-09-08] MEDS: docusate sod 100mg capsule PO SCH ×2 (08:27→20:28)
[2021-09-08] MEDS: buPROPion SR 150mg tablet PO SCH (08:27)
[2021-09-08] MEDS: aspirin 81mg, enteric-coated 1 TAB TABLET.DR PO SCH (08:27)
[2021-09-08] MEDS: levoTHYROXINE 100mcg tablet PO SCH (08:28)
[2021-09-08] MEDS: ferrous sulfate 325mg tablet PO SCH ×3 (08:28→21:42)
[2021-09-08] MEDS: amLODIPine 5mg tablet PO SCH (08:28)
[2021-09-08] MEDS: gabapentin 300mg capsule PO SCH ×3 (08:28→21:41)
[2021-09-08] MEDS: nitroGLYCERIN 0.2mg/hour patch TD SCH (08:29)
[2021-09-08] MEDS: heparin 25,000 UNIT/250ml bag 250 ML IV SCH ×2 (08:33→23:22)
[2021-09-08] MEDS: acetaminophen 325mg tablet PO PRN (08:59)
[2021-09-08] MEDS ORDERED: ringers solution, lacted 1,000 ML IV ONE (10:55)
[2021-09-08 11:00] VITALS: BP 153/96
[2021-09-08] MEDS: sennosides/docusate sodium tablet PO SCH ×2 (11:55→20:28)
[2021-09-08 18:00] VITALS: BP 142/68
--- NOTE | 2021-09-08 18:45 | NUR ---
Problems reprioritized. Patient report given, questions answered & plan of care reviewed with DELMY Sierra.
--- NOTE | 2021-09-08 18:57 | NUR ---
Patient in room PCU 3024. I have received report from ANTOINE BROCK and had the opportunity to ask questions and assume patient care.
[2021-09-08] MEDS: LORazepam 2 mg/ml vial IV PRN (20:28)
[2021-09-08] MEDS: bisacodyl 10mg suppository rectal RC PRN (20:33)
[2021-09-08] MEDS: magnesium hydroxide 30ml (MOM) UD suspension PO PRN (20:33)
[2021-09-08 22:00] VITALS: BP 116/59
[2021-09-09 01:25] LABS: BASOPHILS % (AUTO) 0.5 % (0-1); EOSINOPHILS # (AUTO) 0.1 X10'3 (0-0.9); EOSINOPHILS % (AUTO) 2.4 % (0-6); HEMATOCRIT 26.5 % (35.0-45.0); HEMOGLOBIN 8.7 g/dl (12.0-16.0); LYMPHOCYTES % (AUTO) 33.6 % (21-51); MEAN CORPUSCULAR HEMOGLOBIN 29.7 PG (27.0-31.0); MEAN CORPUSCULAR HGB CONC 32.8 g/dL (33.0-36.5); MEAN CORPUSCULAR VOLUME 90.7 FL (78-98); MEAN PLATELET VOLUME 8.6 FL (7.4-10.4); MONOCYTES # (AUTO) 0.3 X10'3 (0-0.9); MONOCYTES % (AUTO) 5.8 % (2-12); NEUTROPHILS # (AUTO) 3.4 X10'3 (1.8-7.7); NEUTROPHILS % (AUTO) 57.7 % (42-75); PLATELET COUNT 213 X10'3 (140-440); RED BLOOD COUNT 2.92 X10'6 (4.20-5.60); RED CELL DISTRIBUTION WIDTH 16.2 % (11.5-14.5); WHITE BLOOD COUNT 5.9 X10'3 (4.5-11.0)
[2021-09-09 01:39] LABS: ALANINE AMINOTRANSFERASE 8 U/L (12-78); ALBUMIN 2.9 G/DL (3.4-5.0); ALBUMIN/GLOBULIN RATIO 0.7 (1.1-1.5); ALKALINE PHOSPHATASE 118 IU/L (46-116); ANION GAP 8 (8-16); ASPARTATE AMINO TRANSFERASE 10 U/L (10-37); BILIRUBIN,TOTAL 0.4 MG/DL (0.1-1.0); BLOOD UREA NITROGEN 12 MG/DL (7-18); BUN/CREATININE RATIO 15.2 (6.6-38.0); CALCIUM 8.6 MG/DL (8.5-10.1); CHLORIDE 104 MMOL/L (99-107); CREATININE 0.79 MG/DL (0.40-0.90); GLUCOSE 102 MG/DL (70-104); MAGNESIUM 2.3 MG/DL (1.5-2.4); PHOSPHORUS 4.4 MG/DL (2.3-4.5); POTASSIUM 3.7 MMOL/L (3.5-5.1); SODIUM 139 MMOL/L (135-145); TOTAL CARBON DIOXIDE 26.6 MMOL/L (24-32); TOTAL PROTEIN 6.8 G/DL (6.4-8.2); eGFR 73 ML/MIN
[2021-09-09 02:00] VITALS: BP 137/76
--- NOTE | 2021-09-09 02:00 | NUR ---
PTT RESULT AT 66 AND RATE DECREASED FROM 2460 UNITS/HOUR TO 2360UNITS/HOUR
[2021-09-09] MEDS ORDERED: MALTODEXTRIN/FRUCTOSE 0.68 KCAL/ML LIQUID 296ML BOTTLE PO ONE (05:00)
[2021-09-09] MEDS ORDERED: gabapentin 400mg capsule PO ONE (05:30)
[2021-09-09] MEDS ORDERED: cefazolin/dext.iso 2gm/50ml 50 ML IV ONE (05:30)
[2021-09-09 06:00] VITALS: BP 114/61
[2021-09-09] MEDS ORDERED: famotidine/PF 10 mg/ml inj IV ONE (06:00)
[2021-09-09] MEDS ORDERED: LORazepam 2 mg/ml vial IV ONE (06:00)
--- NOTE | 2021-09-09 06:57 | NUR ---
Problems reprioritized. Patient report given, questions answered & plan of care reviewed with LENCHO BROCK.
[2021-09-09] MEDS: sod chloride 0.9% 10ml flush syringe IV SCH ×2 (08:00→20:00)
[2021-09-09] MEDS: heparin 10,000 units/1 ML INJ IV PRN (08:50)
[2021-09-09] MEDS: duloxetine 30mg CAPSULE.DR PO SCH (09:03)
[2021-09-09] MEDS: amLODIPine 5mg tablet PO SCH (09:06)
[2021-09-09] MEDS: levoTHYROXINE 100mcg tablet PO SCH (09:07)
[2021-09-09] MEDS: buPROPion SR 150mg tablet PO SCH (09:07)
[2021-09-09] MEDS: pantoprazole 40mg Tablet.DR PO SCH (09:07)
[2021-09-09] MEDS: sennosides/docusate sodium tablet PO SCH ×2 (09:07→21:27)
[2021-09-09] MEDS: ferrous sulfate 325mg tablet PO SCH ×3 (09:08→21:34)
[2021-09-09] MEDS: docusate sod 100mg capsule PO SCH ×2 (09:08→21:27)
[2021-09-09] MEDS: furosemide 20 MG/2 ML vial IV SCH (09:11)
[2021-09-09] MEDS: aspirin 81mg, enteric-coated 1 TAB TABLET.DR PO SCH (09:12)
[2021-09-09] MEDS: gabapentin 300mg capsule PO SCH ×3 (09:13→21:28)
[2021-09-09] MEDS: normal saline 1000ml 1,000 ML IV SCH ×2 (09:15→20:45)
[2021-09-09 11:00] VITALS: BP 147/81
--- NOTE | 2021-09-09 12:16 | NUR ---
Message to Dr. Vanessa Mcconnell [id number] todays scheduled surgery was postponed until tomorrow we were advised by the OR nurse to continue the Heparin Drip until tomorrow at 8 am, but the original order is now . Thank You Marilyn BROCK [phone] (225 character message out of a maximum of 240)
[2021-09-09] MEDS ORDERED: heparin 25,000 UNIT/250ml bag 250 ML IV SCH (12:30)
[2021-09-09] MEDS: piperacillin/tazo 4.5gm/100ml 100 ML IV SCH ×2 (13:16)
[2021-09-09 15:00] VITALS: BP 93/41
[2021-09-09] MEDS: magnesium hydroxide 30ml (MOM) UD suspension PO PRN (16:07)
[2021-09-09] MEDS: CefTRIAXone 2gm/NS 100ml IVPB 100 ML IV SCH (16:12)
[2021-09-09] MEDS: acetaminophen 325mg tablet PO PRN (16:22)
[2021-09-09 18:00] VITALS: BP 147/72
--- NOTE | 2021-09-09 19:13 | NUR ---
Patient in room PCU 3024. I have received report from Jamila BROCK and had the opportunity to ask questions and assume patient care.
[2021-09-09] MEDS: mupirocin 2% ointment 22GM NS SCH (20:00)
[2021-09-09] MEDS: K and/or MAG REPLACEMENT MC SCH (20:00)
[2021-09-09] MEDS ORDERED: heparin, porcine 5000 units/ml vial SQ SCH (20:00)
[2021-09-09] MEDS: bisacodyl 10mg suppository rectal RC PRN (21:28)
[2021-09-09 22:00] VITALS: BP 144/72
[2021-09-10] VITALS (18 sets, daily range): BP systolic 85–145; BP diastolic 52–82
[2021-09-10] MEDS: temazepam 15mg capsule PO PRN
[2021-09-10] MEDS ORDERED: heparin 10,000 units/1 ML INJ IV PRN (02:20)
[2021-09-10] MEDS: normal saline 1000ml 1,000 ML IV SCH (02:42)
[2021-09-10] MEDS: heparin 25,000 UNIT/250ml bag 250 ML IV SCH ×2 (02:49→07:49)
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
[2021-09-10 06:26] LABS: EOSINOPHILS # (AUTO) 0.1 X10'3 (0-0.9); EOSINOPHILS % (AUTO) 2.7 % (0-6); HEMATOCRIT 27.3 % (35.0-45.0); LYMPHOCYTES # (AUTO) 1.5 X10'3 (1.1-4.8); LYMPHOCYTES % (AUTO) 29.1 % (21-51); MEAN CORPUSCULAR HEMOGLOBIN 30.1 PG (27.0-31.0); MEAN CORPUSCULAR HGB CONC 32.9 g/dL (33.0-36.5); MEAN CORPUSCULAR VOLUME 91.5 FL (78-98); MONOCYTES # (AUTO) 0.3 X10'3 (0-0.9); MONOCYTES % (AUTO) 6.8 % (2-12); NEUTROPHILS % (AUTO) 60.4 % (42-75); PLATELET COUNT 204 X10'3 (140-440); RED BLOOD COUNT 2.98 X10'6 (4.20-5.60); RED CELL DISTRIBUTION WIDTH 15.6 % (11.5-14.5)
[2021-09-10 06:27] LABS: APTT 33 SECONDS (22-32)
[2021-09-10 06:37] LABS: ALANINE AMINOTRANSFERASE 13 U/L (12-78); ALBUMIN 3.1 G/DL (3.4-5.0); ALBUMIN/GLOBULIN RATIO 0.8 (1.1-1.5); ALKALINE PHOSPHATASE 120 IU/L (46-116); ANION GAP 5 (8-16); ASPARTATE AMINO TRANSFERASE 14 U/L (10-37); BILIRUBIN,TOTAL 0.3 MG/DL (0.1-1.0); BLOOD UREA NITROGEN 9 MG/DL (7-18); CALCIUM 9.1 MG/DL (8.5-10.1); CHLORIDE 109 MMOL/L (99-107); CREATININE 0.75 MG/DL (0.40-0.90); GLUCOSE 97 MG/DL (70-104); MAGNESIUM 2.2 MG/DL (1.5-2.4); PHOSPHORUS 4.4 MG/DL (2.3-4.5); POTASSIUM 3.9 MMOL/L (3.5-5.1); SODIUM 141 MMOL/L (135-145); TOTAL CARBON DIOXIDE 26.7 MMOL/L (24-32); eGFR 78 ML/MIN
--- NOTE | 2021-09-10 06:40 | NUR ---
Problems reprioritized. Patient report given, questions answered & plan of care reviewed with Jamila BROCK.
[2021-09-10] MEDS ORDERED: ceFAZolin 1000mg inj ONE (07:00)
[2021-09-10] MEDS ORDERED: epiNEPHrine 1 mg/ml inj ONE (07:00)
[2021-09-10] MEDS: sod chloride 0.9% 10ml flush syringe IV SCH ×2 (08:00→20:00)
[2021-09-10] MEDS: ferrous sulfate 325mg tablet PO SCH ×3 (08:00→21:00)
[2021-09-10] MEDS: gabapentin 300mg capsule PO SCH ×3 (08:00→21:00)
[2021-09-10] MEDS: mupirocin 2% ointment 22GM NS SCH ×3 (08:00→11:43)
[2021-09-10] MEDS: sennosides/docusate sodium tablet PO SCH ×2 (08:00→20:00)
[2021-09-10] MEDS: amLODIPine 5mg tablet PO SCH (08:00)
[2021-09-10] MEDS: furosemide 20 MG/2 ML vial IV SCH (08:00)
[2021-09-10] MEDS: K and/or MAG REPLACEMENT MC SCH ×2 (08:00→20:00)
[2021-09-10] MEDS: nitroGLYCERIN 0.2mg/hour patch TD SCH ×2 (08:00→08:58)
--- NOTE | 2021-09-10 08:05 | NUR ---
Nabor Jang DC'd @ 8 AM today Hill Carter RN
[2021-09-10] MEDS: levoTHYROXINE 100mcg tablet PO SCH (08:56)
[2021-09-10] MEDS: buPROPion SR 150mg tablet PO SCH (09:05)
[2021-09-10] MEDS: duloxetine 30mg CAPSULE.DR PO SCH (09:05)
[2021-09-10] MEDS: pantoprazole 40mg Tablet.DR PO SCH (09:23)
[2021-09-10] MEDS: aspirin 81mg, enteric-coated 1 TAB TABLET.DR PO SCH (09:23)
[2021-09-10] MEDS: docusate sod 100mg capsule PO SCH ×2 (09:23→20:00)
[2021-09-10] MEDS: CefTRIAXone 2gm/NS 100ml IVPB 100 ML IV SCH (09:31)
[2021-09-10] MEDS ORDERED: MALTODEXTRIN/FRUCTOSE 0.68 KCAL/ML LIQUID 296ML BOTTLE PO ONE (11:00)
[2021-09-10] MEDS: Insulin Reg/NS 100units/100mL 100 ML IV SCH (11:00)
[2021-09-10] MEDS ORDERED: cefazolin/dext.iso 2gm/50ml 50 ML IV ONE (11:00)
[2021-09-10] MEDS ORDERED: gabapentin 400mg capsule PO ONE (11:00)
[2021-09-10] MEDS ORDERED: fentaNYL /PF 50mcg/ml 5ml ampule ONE ×3 (11:32)
[2021-09-10] MEDS ORDERED: MIDAZolam 1mg/ml 10ml vial ONE (11:32)
[2021-09-10] MEDS ORDERED: rocuronium 10mg/ml inj IV ONE ×4 (11:33)
[2021-09-10] MEDS: LORazepam 2 mg/ml vial IV PRN (11:39)
[2021-09-10 12:41] LABS: ABG BASE EXCESS -2.6 mmol/L (-2.0-2.0); ABG OXYGEN SATURATION 99.8 % (94-97); ABG PCO2 31.7 mmHg (32.0-45.0); ABG PO2 230.5 mmHg (75.0-100.0); CL (ABG) 107 mmol/L (98-110); FCOHb 0.4 % (0.0-3.9); FMetHb 0.3 % (0.0-1.5); FO2Hb 99.1 % (94-97); GLUCOSE (ABG) 140 mg/dl (70-105); IONIZED CA (ABG) 1.21 mmol/L (1.10-1.43); K (ABG) 3.8 mmol/L (3.5-5.0); TOTAL HEMOGLOBIN 9.2 G/dl (12.0-16.0)
[2021-09-10] MEDS ORDERED: aminocaproic acid 250 MG/1 ML inj. ONE (12:45)
[2021-09-10] MEDS ORDERED: LIDOcaine 2% (20 mg/ml) 5ml cardiac syringe ONE (12:45)
[2021-09-10] MEDS ORDERED: potassium Cl 2 mEq/ml inj IV ONE (12:45)
[2021-09-10] MEDS ORDERED: albumin (human) 25% 100 ML IV solution IV ONE (12:45)
[2021-09-10] MEDS ORDERED: magnesium sulf 1 GM/2 ML ONE (12:45)
[2021-09-10] MEDS ORDERED: heparin 1,000 units/ml 10ml inj ONE (12:45)
[2021-09-10] MEDS ORDERED: methylPREDNISolone sod succ 1000mg vial ONE (12:45)
[2021-09-10] MEDS ORDERED: sodium bicarbonate (8.4%) 1 mEq/ml syringe ONE (12:45)
[2021-09-10] MEDS ORDERED: NORepinephrine bitart. inj. IV ONE (12:45)
[2021-09-10] MEDS ORDERED: heparin 10,000 units/1 ML INJ ONE (12:45)
--- NOTE | 2021-09-10 12:48 | NUR ---
Consents to CVOR.
[2021-09-10 13:32] LABS: ABG BASE EXCESS -0.2 mmol/L (-2.0-2.0); ABG HCO3 25.9 mmol/L (22.0-26.0); ABG OXYGEN SATURATION 99.7 % (94-97); ABG PCO2 49.5 mmHg (32.0-45.0); CL (ABG) 104 mmol/L (98-110); FCOHb 0.9 % (0.0-3.9); FMetHb 0.3 % (0.0-1.5); FO2Hb 98.5 % (94-97); GLUCOSE (ABG) 140 mg/dl (70-105); IONIZED CA (ABG) 1.16 mmol/L (1.10-1.43); K (ABG) 4.5 mmol/L (3.5-5.0); TOTAL HEMOGLOBIN 8.7 G/dl (12.0-16.0)
[2021-09-10 14:09] LABS: ABG BASE EXCESS VENOUS -4.8 mmol/L (-2.0 - 2.0); ABG HCO3 VENOUS 21.7 mmol/L (21.0-28.0); ABG PCO2 VENOUS 46.7 mmHg (38.0-51.0); ABG PO2 VENOUS 58.5 mmHg (25.0-35.0); CL (ABG) 103 mmol/L (98-110); FCOHb VENOUS 1.7 % (0.0- 3.9); FHHb VENOUS 12.7 %; FMetHb VENOUS 0.3 % (0.0 - 0.5); FO2Hb VENOUS 85.3 %; GLUCOSE (ABG) 159 mg/dl (70-105); IONIZED CA (ABG) 1.17 mmol/L (1.10-1.43); K (ABG) 4.3 mmol/L (3.5-5.0); TOTAL HEMOGLOBIN 9.6 G/dl (12.0-16.0)
[2021-09-10 14:21] LABS: ABG BASE EXCESS -0.8 mmol/L (-2.0-2.0); ABG HCO3 25.6 mmol/L (22.0-26.0); ABG OXYGEN SATURATION 99.5 % (94-97); ABG PCO2 50.8 mmHg (32.0-45.0); ABG PO2 254.4 mmHg (75.0-100.0); CL (ABG) 103 mmol/L (98-110); FCOHb 1.1 % (0.0-3.9); FMetHb 0.3 % (0.0-1.5); FO2Hb 98.1 % (94-97); GLUCOSE (ABG) 177 mg/dl (70-105); IONIZED CA (ABG) 1.13 mmol/L (1.10-1.43); K (ABG) 4.9 mmol/L (3.5-5.0); TOTAL HEMOGLOBIN 9.2 G/dl (12.0-16.0)
[2021-09-10 14:34] LABS: ABG BASE EXCESS 0.2 mmol/L (-2.0-2.0); ABG HCO3 25.2 mmol/L (22.0-26.0); ABG OXYGEN SATURATION 99.8 % (94-97); ABG PCO2 42.6 mmHg (32.0-45.0); ABG PO2 279.8 mmHg (75.0-100.0); CL (ABG) 104 mmol/L (98-110); FMetHb 0.3 % (0.0-1.5); FO2Hb 98.5 % (94-97); GLUCOSE (ABG) 185 mg/dl (70-105); IONIZED CA (ABG) 1.11 mmol/L (1.10-1.43); K (ABG) 4.7 mmol/L (3.5-5.0); TOTAL HEMOGLOBIN 9.2 G/dl (12.0-16.0)
[2021-09-10 15:01] LABS: ABG OXYGEN SATURATION 99.7 % (94-97); ABG PCO2 40.8 mmHg (32.0-45.0); ABG PO2 252.6 mmHg (75.0-100.0); CL (ABG) 104 mmol/L (98-110); FCOHb 0.9 % (0.0-3.9); FMetHb 0.3 % (0.0-1.5); FO2Hb 98.5 % (94-97); GLUCOSE (ABG) 178 mg/dl (70-105); IONIZED CA (ABG) 1.14 mmol/L (1.10-1.43); K (ABG) 4.3 mmol/L (3.5-5.0); TOTAL HEMOGLOBIN 9.4 G/dl (12.0-16.0)
[2021-09-10 15:23] LABS: ABG BASE EXCESS 0.2 mmol/L (-2.0-2.0); ABG HCO3 23.6 mmol/L (22.0-26.0); ABG PCO2 32.8 mmHg (32.0-45.0); ABG PO2 444.5 mmHg (75.0-100.0); CL (ABG) 102 mmol/L (98-110); FCOHb 1.4 % (0.0-3.9); FMetHb 0.3 % (0.0-1.5); FO2Hb 98.3 % (94-97); GLUCOSE (ABG) 170 mg/dl (70-105); IONIZED CA (ABG) 1.38 mmol/L (1.10-1.43); K (ABG) 4.9 mmol/L (3.5-5.0); TOTAL HEMOGLOBIN 8.1 G/dl (12.0-16.0)
[2021-09-10 15:39] LABS: ABG BASE EXCESS VENOUS -3.9 mmol/L (-2.0 - 2.0); ABG HCO3 VENOUS 21.4 mmol/L (21.0-28.0); ABG PCO2 VENOUS 39.3 mmHg (38.0-51.0); ABG PO2 VENOUS 43.4 mmHg (25.0-35.0); CL (ABG) 103 mmol/L (98-110); FCOHb VENOUS 1.4 % (0.0- 3.9); FHHb VENOUS 20.6 %; FMetHb VENOUS 0.3 % (0.0 - 0.5); FO2Hb VENOUS 77.7 %; GLUCOSE (ABG) 171 mg/dl (70-105); IONIZED CA (ABG) 1.26 mmol/L (1.10-1.43); K (ABG) 4.5 mmol/L (3.5-5.0); TOTAL HEMOGLOBIN 8.5 G/dl (12.0-16.0)
[2021-09-10 15:42] LABS: ACTIVATED CLOTTING TIME 130 SEC (101-148)
[2021-09-10] MEDS ORDERED: albumin (Human) 5% 250ml 250 ML IV ONE ×3 (16:11→16:18)
[2021-09-10] MEDS ORDERED: propofol inj 20 ML IV ONE (16:11)
[2021-09-10] MEDS ORDERED: LIDOcaine 2% (20mg/ml) 5ml vial ONE (16:11)
[2021-09-10] MEDS ORDERED: HYDROcodone/acetaminophen 10/325mg tab PO PRN (16:20)
[2021-09-10] MEDS ORDERED: mineral oil 133ml enema RC PRN (16:20)
[2021-09-10] MEDS ORDERED: metoclopramide 5 mg/ml inj IV PRN (16:20)
[2021-09-10] MEDS ORDERED: acetaminophen 325mg tablet PO PRN ×2 (16:20)
[2021-09-10] MEDS ORDERED: sodium phosphate inj. 30 MMOL in dextrose 5%-water 250 ML IV PRN (16:20)
[2021-09-10] MEDS ORDERED: Neutra Phos packet PO PRN (16:20)
[2021-09-10] MEDS ORDERED: potassium CL 10mEq/100ml bag 100 ML IV PRN (16:20)
[2021-09-10] MEDS ORDERED: bisacodyl 10mg suppository rectal RC PRN (16:20)
[2021-09-10] MEDS ORDERED: morphine 4 MG/ML inj SYRINge IV PRN (16:20)
[2021-09-10] MEDS ORDERED: magnesium citrate 296ml oral solution PO PRN (16:20)
[2021-09-10] MEDS ORDERED: dextrose 50%-water 50ml dispensing syringe IV PRN (16:20)
[2021-09-10] MEDS ORDERED: magnesium hydroxide 30ml (MOM) UD suspension PO PRN (16:20)
[2021-09-10] MEDS ORDERED: magnesium 2GM in 50ml NS 50 ML IV PRN (16:20)
[2021-09-10] MEDS ORDERED: Insulin Reg/NS 100units/100mL 100 ML IV SCH (16:20)
[2021-09-10] MEDS ORDERED: insulin glargine (Lantus) pen - multi-dose SQ PRN (16:20)
[2021-09-10] MEDS ORDERED: sodium chloride 0.45% 1,000 ML IV SCH (16:20)
[2021-09-10] MEDS ORDERED: morphine 2 MG/ML inj. syringe IV PRN (16:20)
[2021-09-10] MEDS ORDERED: potassium Cl 20 mEq SR tablet PO PRN (16:20)
[2021-09-10] MEDS ORDERED: magnesium 4gm in 100ml NS 100 ML IV PRN (16:20)
[2021-09-10] MEDS ORDERED: nitroGLYCERIN-Tridil 50MG/D5W 250 ML IV PRN (16:20)
[2021-09-10] MEDS ORDERED: NORepinephrine 8mg/ 250ml NS 250 ML IV PRN (16:20)
[2021-09-10] MEDS ORDERED: niCARDipine-NS 40mg/200ml IVPB 200 ML IV PRN (16:20)
[2021-09-10] MEDS ORDERED: ondansetron/PF 4mg/2ml inj IV PRN (16:20)
[2021-09-10] MEDS ORDERED: sodium phosphate inj. 15 MMOL in dextrose 5%-water 250 ML IV PRN (16:20)
[2021-09-10] MEDS ORDERED: mupirocin 2% nasal ointment 1gm UD NS SCH (16:35)
--- NOTE | 2021-09-10 16:45 | NUR ---
Received to room 2039, accompanied by MDs and surgical crew. Placed on ventilator, to pvc monitor, arterial line and PA line pressure monitored. Chest tubes to suction at 20 cm. Pina cath to gravity drainage. Dressings are dry and intact. See assessment record. All vasoactive drugs are infusing via central line.
[2021-09-10 16:55] LABS: BASOPHILS % (AUTO) 0.1 % (0-1); EOSINOPHILS % (AUTO) 0.1 % (0-6); HEMATOCRIT 28.8 % (35.0-45.0); HEMOGLOBIN 9.5 g/dl (12.0-16.0); LYMPHOCYTES # (AUTO) 1.5 X10'3 (1.1-4.8); LYMPHOCYTES % (AUTO) 8.7 % (21-51); MEAN CORPUSCULAR HEMOGLOBIN 29.7 PG (27.0-31.0); MEAN CORPUSCULAR VOLUME 89.8 FL (78-98); MONOCYTES # (AUTO) 0.5 X10'3 (0-0.9); NEUTROPHILS # (AUTO) 15.1 X10'3 (1.8-7.7); NEUTROPHILS % (AUTO) 88.1 % (42-75); PLATELET COUNT 112 X10'3 (140-440); RED CELL DISTRIBUTION WIDTH 15.4 % (11.5-14.5); WHITE BLOOD COUNT 17.1 X10'3 (4.5-11.0)
[2021-09-10 17:00] LABS: ABG BASE EXCESS -0.5 mmol/L (-2.0-2.0); ABG OXYGEN SATURATION 98.6 % (94-97); ABG PCO2 (T) 36.7 mmHg (32.0-45.0); ABG PO2 (T) 146.3 mmHg (75.0-100.0); FCOHb 0.3 % (0.0-3.9); FMetHb 0.3 % (0.0-1.5); PATIENT TEMPERATURE 35.7; PEEP 5 cm H2O; RESPIRATORY RATE 16 b/min; TIDAL VOLUME 600 mL; TOTAL HEMOGLOBIN 10.2 G/dl (12.0-16.0)
[2021-09-10 17:03] LABS: APTT 29 SECONDS (22-32)
[2021-09-10 17:08] LABS: ALANINE AMINOTRANSFERASE 16 U/L (12-78); ALBUMIN 3.9 G/DL (3.4-5.0); ALBUMIN/GLOBULIN RATIO 1.5 (1.1-1.5); ALKALINE PHOSPHATASE 90 IU/L (46-116); ANION GAP 9 (8-16); ASPARTATE AMINO TRANSFERASE 58 U/L (10-37); BILIRUBIN,TOTAL 0.9 MG/DL (0.1-1.0); BLOOD UREA NITROGEN 9 MG/DL (7-18); BUN/CREATININE RATIO 10.1 (6.6-38.0); CALCIUM 8.8 MG/DL (8.5-10.1); CHLORIDE 109 MMOL/L (99-107); CREATININE 0.89 MG/DL (0.40-0.90); GLUCOSE 191 MG/DL (70-104); PHOSPHORUS 3.5 MG/DL (2.3-4.5); SODIUM 143 MMOL/L (135-145); TOTAL CARBON DIOXIDE 25.2 MMOL/L (24-32); TOTAL PROTEIN 6.5 G/DL (6.4-8.2); eGFR 64 ML/MIN
[2021-09-10 17:16] LABS: MAGNESIUM 4.6 MG/DL (1.5-2.4)
[2021-09-10] MEDS: albumin (Human) 5% 250ml 250 ML IV PRN ×3 (17:37→19:00)
[2021-09-10] MEDS: potassium Cl 20mEq/100mL bag 100 ML IV PRN ×2 (17:44→18:54)
--- NOTE | 2021-09-10 18:14 | NUR ---
Notified Dr. Steel about critical magnesium of 4.6 and difficulty placing OG tube. Per MD, okay to hold off on OG tube for now and work towards extubating the patient. Also, MD aware of low CI and positive response to Albumin x2; okay to give x2 more Albumin on night monitor before calling MD.
--- NOTE | 2021-09-10 19:31 | NUR ---
Patient has put out 250 ml of blood in an hour. Dr Steel notified. he ordered one unit of platlets
[2021-09-10 19:37] LABS: BASOPHILS % (AUTO) 0.1 % (0-1); EOSINOPHILS % (AUTO) 0 % (0-6); HEMATOCRIT 22.6 % (35.0-45.0); HEMOGLOBIN 7.3 g/dl (12.0-16.0); LYMPHOCYTES # (AUTO) 0.8 X10'3 (1.1-4.8); LYMPHOCYTES % (AUTO) 5.6 % (21-51); MEAN CORPUSCULAR HEMOGLOBIN 29.2 PG (27.0-31.0); MEAN CORPUSCULAR HGB CONC 32.6 g/dL (33.0-36.5); MEAN CORPUSCULAR VOLUME 89.5 FL (78-98); MEAN PLATELET VOLUME 9.1 FL (7.4-10.4); MONOCYTES # (AUTO) 0.5 X10'3 (0-0.9); MONOCYTES % (AUTO) 3.2 % (2-12); NEUTROPHILS # (AUTO) 13.5 X10'3 (1.8-7.7); NEUTROPHILS % (AUTO) 91.1 % (42-75); PLATELET COUNT 109 X10'3 (140-440); RED BLOOD COUNT 2.52 X10'6 (4.20-5.60); RED CELL DISTRIBUTION WIDTH 15.5 % (11.5-14.5); WHITE BLOOD COUNT 14.8 X10'3 (4.5-11.0)
[2021-09-10 19:49] LABS: APTT 31 SECONDS (22-32)
[2021-09-10] MEDS ORDERED: mupirocin 2% ointment 22GM NS SCH (20:00)
[2021-09-10] MEDS: atorvastatin 10mg tablet PO SCH (21:00)
[2021-09-10] MEDS ORDERED: gabapentin 300mg capsule PO SCH (21:00)
[2021-09-11] VITALS (27 sets, daily range): BP systolic 91–131; BP diastolic 52–81
[2021-09-11 00:50] LABS: BASOPHILS % (AUTO) 0 % (0-1); EOSINOPHILS % (AUTO) 0 % (0-6); LYMPHOCYTES # (AUTO) 0.4 X10'3 (1.1-4.8); LYMPHOCYTES % (AUTO) 2.5 % (21-51); MEAN CORPUSCULAR HEMOGLOBIN 29.6 PG (27.0-31.0); MEAN CORPUSCULAR HGB CONC 32.6 g/dL (33.0-36.5); MEAN CORPUSCULAR VOLUME 90.8 FL (78-98); MEAN PLATELET VOLUME 9.4 FL (7.4-10.4); MONOCYTES # (AUTO) 0.3 X10'3 (0-0.9); MONOCYTES % (AUTO) 1.7 % (2-12); NEUTROPHILS # (AUTO) 15.1 X10'3 (1.8-7.7); NEUTROPHILS % (AUTO) 95.8 % (42-75); PLATELET COUNT 169 X10'3 (140-440); RED BLOOD COUNT 2.37 X10'6 (4.20-5.60); RED CELL DISTRIBUTION WIDTH 16.1 % (11.5-14.5); WHITE BLOOD COUNT 15.7 X10'3 (4.5-11.0)
[2021-09-11 00:55] LABS: ALANINE AMINOTRANSFERASE 26 U/L (12-78); ALBUMIN 4.1 G/DL (3.4-5.0); ALBUMIN/GLOBULIN RATIO 1.8 (1.1-1.5); ALKALINE PHOSPHATASE 77 IU/L (46-116); ANION GAP 10 (8-16); ASPARTATE AMINO TRANSFERASE 76 U/L (10-37); BILIRUBIN,TOTAL 0.6 MG/DL (0.1-1.0); BLOOD UREA NITROGEN 15 MG/DL (7-18); BUN/CREATININE RATIO 11.4 (6.6-38.0); CALCIUM 9.2 MG/DL (8.5-10.1); CHLORIDE 112 MMOL/L (99-107); CREATININE 1.32 MG/DL (0.40-0.90); GLUCOSE 140 MG/DL (70-104); MAGNESIUM 3.6 MG/DL (1.5-2.4); PHOSPHORUS 4.4 MG/DL (2.3-4.5); SODIUM 145 MMOL/L (135-145); TOTAL CARBON DIOXIDE 22.8 MMOL/L (24-32); TOTAL PROTEIN 6.4 G/DL (6.4-8.2); eGFR 41 ML/MIN
[2021-09-11 00:56] LABS: HEMATOCRIT 21.5 % (35.0-45.0)
[2021-09-11 01:06] LABS: APTT 24 SECONDS (22-32)
[2021-09-11 03:23] LABS: ABG BASE EXCESS -3.2 mmol/L (-2.0-2.0); ABG HCO3 21.1 mmol/L (22.0-26.0); ABG OXYGEN SATURATION 98.1 % (94-97); ABG PCO2 (T) 35.3 mmHg (32.0-45.0); ABG PO2 (T) 124.1 mmHg (75.0-100.0); FCOHb 0.3 % (0.0-3.9); FMetHb 0.3 % (0.0-1.5); FO2Hb 97.5 % (94-97); PATIENT TEMPERATURE 37.7; PEEP 5 cm H2O; RESPIRATORY RATE 16 b/min; TIDAL VOLUME 600 mL; TOTAL HEMOGLOBIN 7.3 G/dl (12.0-16.0)
[2021-09-11] MEDS: Insulin Reg/NS 100units/100mL 100 ML IV SCH (04:46)
[2021-09-11] MEDS: metoprolol tartrate 12.5mg (1/2 tablet) PO SCH ×2 (08:00→20:00)
[2021-09-11] MEDS: K and/or MAG REPLACEMENT MC SCH ×2 (08:00→20:00)
[2021-09-11] MEDS: levoTHYROXINE 100mcg tablet PO SCH (08:00)
[2021-09-11] MEDS: buPROPion SR 150mg tablet PO SCH (08:00)
[2021-09-11] MEDS: gabapentin 300mg capsule PO SCH ×2 (08:00→21:32)
[2021-09-11] MEDS: duloxetine 30mg CAPSULE.DR PO SCH (08:00)
[2021-09-11] MEDS: sod chloride 0.9% 10ml flush syringe IV SCH ×2 (08:00→20:00)
[2021-09-11] MEDS: ferrous sulfate 325mg tablet PO SCH ×3 (08:00→21:31)
[2021-09-11] MEDS: docusate sod 100mg capsule PO SCH ×2 (08:00→20:00)
[2021-09-11] MEDS: sennosides/docusate sodium tablet PO SCH ×2 (08:00→20:00)
[2021-09-11] MEDS: aspirin 325mg tablet, delayed-release (Ecotrin) PO SCH (08:00)
[2021-09-11 08:18] LABS: HEMATOCRIT 22.4 % (35.0-45.0); HEMOGLOBIN 7.5 g/dl (12.0-16.0); MEAN CORPUSCULAR HGB CONC 33.6 g/dL (33.0-36.5); MEAN CORPUSCULAR VOLUME 89.1 FL (78-98); MEAN PLATELET VOLUME 10.1 FL (7.4-10.4); PLATELET COUNT 143 X10'3 (140-440); RED BLOOD COUNT 2.52 X10'6 (4.20-5.60); WHITE BLOOD COUNT 10.9 X10'3 (4.5-11.0)
[2021-09-11 09:00] LABS: ALANINE AMINOTRANSFERASE 24 U/L (12-78); ALBUMIN 3.7 G/DL (3.4-5.0); ALBUMIN/GLOBULIN RATIO 1.7 (1.1-1.5); ALKALINE PHOSPHATASE 79 IU/L (46-116); ANION GAP 13 (8-16); ASPARTATE AMINO TRANSFERASE 60 U/L (10-37); BILIRUBIN,TOTAL 0.5 MG/DL (0.1-1.0); BLOOD UREA NITROGEN 21 MG/DL (7-18); BUN/CREATININE RATIO 17.1 (6.6-38.0); CALCIUM 8.7 MG/DL (8.5-10.1); CHLORIDE 114 MMOL/L (99-107); CREATININE 1.23 MG/DL (0.40-0.90); GLUCOSE 131 MG/DL (70-104); MAGNESIUM 3.5 MG/DL (1.5-2.4); PHOSPHORUS 5.3 MG/DL (2.3-4.5); POTASSIUM 5.3 MMOL/L (3.5-5.1); SODIUM 149 MMOL/L (135-145); TOTAL CARBON DIOXIDE 22.5 MMOL/L (24-32); TOTAL PROTEIN 5.9 G/DL (6.4-8.2); eGFR 44 ML/MIN
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
[2021-09-11] MEDS ORDERED: protamine sulf. 10mg/ml inj. IV ONE (11:45)
[2021-09-11] MEDS ORDERED: NORepinephrine 8 MG in NS 250 ML BAG (32 mcg/ml) IV ONE (11:45)
[2021-09-11] MEDS ORDERED: sevoflurane 250ml liquid IH ONE (11:45)
[2021-09-11] MEDS: HYDROcodone/acetaminophen 10/325mg tab PO PRN ×2 (12:39→15:58)
[2021-09-11] MEDS: normal saline 1000ml 1,000 ML IV SCH (12:45)
[2021-09-11] MEDS: CefTRIAXone 2gm/NS 100ml IVPB 100 ML IV SCH (15:30)
[2021-09-11] MEDS: atorvastatin 10mg tablet PO SCH (21:31)
[2021-09-12] VITALS (25 sets, daily range): BP systolic 88–167; BP diastolic 53–98
[2021-09-12] MEDS: HYDROcodone/acetaminophen 10/325mg tab PO PRN ×2 (02:04→06:50)
[2021-09-12 02:41] LABS: ALBUMIN 3.3 G/DL (3.4-5.0); ANION GAP 11 (8-16); BLOOD UREA NITROGEN 30 MG/DL (7-18); BUN/CREATININE RATIO 25.6 (6.6-38.0); CALCIUM 8.5 MG/DL (8.5-10.1); CHLORIDE 110 MMOL/L (99-107); CREATININE 1.17 MG/DL (0.40-0.90); GLUCOSE 158 MG/DL (70-104); POTASSIUM 4.4 MMOL/L (3.5-5.1); SODIUM 145 MMOL/L (135-145); TOTAL CARBON DIOXIDE 23.8 MMOL/L (24-32); eGFR 47 ML/MIN
[2021-09-12] MEDS: buPROPion SR 150mg tablet PO SCH (07:52)
[2021-09-12] MEDS: docusate sod 100mg capsule PO SCH ×2 (07:52→19:27)
[2021-09-12] MEDS: aspirin 325mg tablet, delayed-release (Ecotrin) PO SCH (07:52)
[2021-09-12] MEDS: sennosides/docusate sodium tablet PO SCH ×2 (07:52→19:28)
[2021-09-12] MEDS: pantoprazole 40mg Tablet.DR PO SCH (07:53)
[2021-09-12] MEDS: gabapentin 300mg capsule PO SCH (07:53)
[2021-09-12] MEDS: ferrous sulfate 325mg tablet PO SCH ×3 (07:53→21:21)
[2021-09-12] MEDS: metoprolol tartrate 12.5mg (1/2 tablet) PO SCH ×2 (07:54→19:28)
[2021-09-12] MEDS: CefTRIAXone 2gm/NS 100ml IVPB 100 ML IV SCH (07:54)
[2021-09-12] MEDS: duloxetine 30mg CAPSULE.DR PO SCH (07:56)
[2021-09-12] MEDS: K and/or MAG REPLACEMENT MC SCH (08:00)
[2021-09-12] MEDS: levoTHYROXINE 100mcg tablet PO SCH (08:00)
[2021-09-12] MEDS: sod chloride 0.9% 10ml flush syringe IV SCH (08:00)
[2021-09-12] MEDS: normal saline 1000ml 1,000 ML IV SCH (08:45)
[2021-09-12] MEDS ORDERED: furosemide 40mg/4ml inj IV ONE (10:35)
[2021-09-12] MEDS ORDERED: furosemide 40mg/4ml inj ONE (11:35)
[2021-09-12] MEDS: lactose-reduced food (Ensure Enlive) - 237ml bottle PO SCH ×2 (13:00→18:08)
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
[2021-09-12] MEDS: magnesium Cl slow-release 64mg tablet PO SCH (19:28)
[2021-09-12] MEDS: potassium Cl 20 mEq SR tablet PO SCH (19:29)
[2021-09-12] MEDS: atorvastatin 10mg tablet PO SCH (21:21)
[2021-09-13] VITALS (27 sets, daily range): BP systolic 106–140; BP diastolic 54–71
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
[2021-09-13 06:14] LABS: BASOPHILS % (AUTO) 0.1 % (0-1); EOSINOPHILS % (AUTO) 0.1 % (0-6); LYMPHOCYTES # (AUTO) 1.5 X10'3 (1.1-4.8); LYMPHOCYTES % (AUTO) 7.5 % (21-51); MEAN CORPUSCULAR HEMOGLOBIN 29.2 PG (27.0-31.0); MEAN CORPUSCULAR HGB CONC 31.8 g/dL (33.0-36.5); MEAN CORPUSCULAR VOLUME 91.9 FL (78-98); MEAN PLATELET VOLUME 10.6 FL (7.4-10.4); MONOCYTES # (AUTO) 1.4 X10'3 (0-0.9); MONOCYTES % (AUTO) 6.8 % (2-12); NEUTROPHILS # (AUTO) 17.5 X10'3 (1.8-7.7); NEUTROPHILS % (AUTO) 85.5 % (42-75); PLATELET COUNT 144 X10'3 (140-440); RED BLOOD COUNT 2.16 X10'6 (4.20-5.60); RED CELL DISTRIBUTION WIDTH 16.4 % (11.5-14.5); WHITE BLOOD COUNT 20.5 X10'3 (4.5-11.0)
[2021-09-13 06:19] LABS: HEMATOCRIT 19.8 % (35.0-45.0); HEMOGLOBIN 6.3 g/dl (12.0-16.0)
[2021-09-13 06:43] LABS: ANISOCYTOSIS 1+; LARGE PLATELETS FEW; PLATELET ESTIMATE NORMAL
[2021-09-13] MEDS: JUVEN Smoothie Arginine/Glut./Ca2+Bmb (Juven 19.3pkt) 240ml cup PO SCH ×2 (07:30→12:30)
[2021-09-13] MEDS: lactose-reduced food (Ensure Enlive) - 237ml bottle PO SCH ×3 (08:43→20:28)
[2021-09-13] MEDS: metoprolol tartrate 12.5mg (1/2 tablet) PO SCH ×2 (08:44→20:27)
[2021-09-13] MEDS: ferrous sulfate 325mg tablet PO SCH ×3 (08:44→20:24)
[2021-09-13] MEDS: magnesium Cl slow-release 64mg tablet PO SCH ×2 (08:44→20:25)
[2021-09-13] MEDS: potassium Cl 20 mEq SR tablet PO SCH ×2 (08:44→20:24)
[2021-09-13] MEDS: aspirin 325mg tablet, delayed-release (Ecotrin) PO SCH (08:44)
[2021-09-13] MEDS: buPROPion SR 150mg tablet PO SCH (08:44)
[2021-09-13] MEDS: docusate sod 100mg capsule PO SCH ×2 (08:44→20:27)
[2021-09-13] MEDS: CefTRIAXone 2gm/NS 100ml IVPB 100 ML IV SCH (08:44)
[2021-09-13] MEDS: levoTHYROXINE 100mcg tablet PO SCH (08:45)
[2021-09-13] MEDS: sennosides/docusate sodium tablet PO SCH ×2 (08:45→20:25)
[2021-09-13] MEDS: duloxetine 30mg CAPSULE.DR PO SCH (08:45)
[2021-09-13] MEDS: pantoprazole 40mg Tablet.DR PO SCH (08:47)
--- NOTE | 2021-09-13 12:25 | NUR ---
Patient in room ICU 2039. I have received report from Laura BROCK and had the opportunity to ask questions and assume patient care.
--- NOTE | 2021-09-13 12:30 | NUR ---
Review of WBC count with HAJA Diane at this time. No changes to POC. Notified of PRBC tranfusion complete, plan to recheck H&H next am.
--- NOTE | 2021-09-13 18:25 | NUR ---
[place] documentation: I have reviewed and agree with all interventions, assessments performed and documented by Jordana BROCK . [place] Medication Administration: For this medication-pass time frame, all medication were reviewed, dispensed, administered and documented per hospital policy by Jordana BROCK .
--- NOTE | 2021-09-13 18:27 | NUR ---
Problems reprioritized. Patient report given, questions answered & plan of care reviewed with Soraida BROCK. Patient resting in bed in no acute distress
[2021-09-13] MEDS: atorvastatin 10mg tablet PO SCH (20:28)
[2021-09-13] MEDS: HYDROcodone/acetaminophen 10/325mg tab PO PRN (20:32)
[2021-09-14 02:00] VITALS: BP 114/63
[2021-09-14 06:13] LABS: ALBUMIN 2.8 G/DL (3.4-5.0); ANION GAP 7 (8-16); BLOOD UREA NITROGEN 21 MG/DL (7-18); BUN/CREATININE RATIO 31.3 (6.6-38.0); CALCIUM 8.2 MG/DL (8.5-10.1); CHLORIDE 108 MMOL/L (99-107); CREATININE 0.67 MG/DL (0.40-0.90); GLUCOSE 121 MG/DL (70-104); POTASSIUM 3.9 MMOL/L (3.5-5.1); SODIUM 141 MMOL/L (135-145); TOTAL CARBON DIOXIDE 25.9 MMOL/L (24-32); eGFR 89 ML/MIN
[2021-09-14 06:15] LABS: BASOPHILS % (AUTO) 0.2 % (0-1); EOSINOPHILS # (AUTO) 0.2 X10'3 (0-0.9); EOSINOPHILS % (AUTO) 1.4 % (0-6); HEMATOCRIT 22.1 % (35.0-45.0); HEMOGLOBIN 7.2 g/dl (12.0-16.0); LYMPHOCYTES # (AUTO) 1.4 X10'3 (1.1-4.8); LYMPHOCYTES % (AUTO) 11.9 % (21-51); MEAN CORPUSCULAR HEMOGLOBIN 29.8 PG (27.0-31.0); MEAN CORPUSCULAR HGB CONC 32.3 g/dL (33.0-36.5); MEAN CORPUSCULAR VOLUME 92.1 FL (78-98); MEAN PLATELET VOLUME 10.3 FL (7.4-10.4); MONOCYTES % (AUTO) 8.2 % (2-12); NEUTROPHILS # (AUTO) 9.3 X10'3 (1.8-7.7); NEUTROPHILS % (AUTO) 78.3 % (42-75); PLATELET COUNT 160 X10'3 (140-440); RED CELL DISTRIBUTION WIDTH 16.4 % (11.5-14.5); WHITE BLOOD COUNT 11.8 X10'3 (4.5-11.0)
--- NOTE | 2021-09-14 06:21 | NUR ---
Patient in room PCU 3009. I have received report from Soraida BROCK and had the opportunity to ask questions and assume patient care.
[2021-09-14 06:55] VITALS: BP 114/63
[2021-09-14] MEDS: JUVEN Smoothie Arginine/Glut./Ca2+Bmb (Juven 19.3pkt) 240ml cup PO SCH ×2 (07:30→12:30)
[2021-09-14] MEDS: pantoprazole 40mg Tablet.DR PO SCH (07:59)
[2021-09-14] MEDS: docusate sod 100mg capsule PO SCH ×2 (08:00→20:00)
[2021-09-14] MEDS: lactose-reduced food (Ensure Enlive) - 237ml bottle PO SCH ×3 (08:00→18:30)
[2021-09-14] MEDS: CefTRIAXone 2gm/NS 100ml IVPB 100 ML IV SCH (09:22)
[2021-09-14] MEDS: aspirin 325mg tablet, delayed-release (Ecotrin) PO SCH (09:23)
[2021-09-14] MEDS: ferrous sulfate 325mg tablet PO SCH ×3 (09:23→22:18)
[2021-09-14] MEDS: potassium Cl 20 mEq SR tablet PO SCH ×2 (09:23→19:37)
[2021-09-14] MEDS: magnesium Cl slow-release 64mg tablet PO SCH ×2 (09:23→20:00)
[2021-09-14] MEDS: duloxetine 30mg CAPSULE.DR PO SCH (09:23)
[2021-09-14] MEDS: sennosides/docusate sodium tablet PO SCH ×2 (09:24→20:00)
[2021-09-14] MEDS: levoTHYROXINE 100mcg tablet PO SCH (09:24)
[2021-09-14] MEDS: buPROPion SR 150mg tablet PO SCH (09:25)
[2021-09-14] MEDS: HYDROcodone/acetaminophen 10/325mg tab PO PRN (09:25)
[2021-09-14] MEDS ORDERED: lactobacillus acidophilus cap PO SCH (10:40)
[2021-09-14 11:00] VITALS: BP 145/68
--- NOTE | 2021-09-14 11:06 | NUR ---
PAGED PICC NURSE REGARDING PICC TO BE PLACED FOR PATIENT. Addendum: 09/14/21 at 1143 by Tayla Barajas RN DELMY VELIZ THE PICC NURSE CAME UP AND STATED THAT SHE WAS GOING TO GET LUNCH BEFORE PLACING THE PICC.
[2021-09-14] MEDS: metoprolol tartrate 12.5mg (1/2 tablet) PO SCH ×2 (12:10→19:37)
[2021-09-14] MEDS: lactobacillus rhamnosus 10,000 MMU CELLS/CAPSULE PO SCH (13:02)
--- NOTE | 2021-09-14 16:02 | NUR ---
Spoke with PICC RN. Will return tomorrow to place PICC. Has came to place PICC numerous times but patient wasn't available.
[2021-09-14 18:40] VITALS: BP 121/62
--- NOTE | 2021-09-14 18:40 | NUR ---
Patient in room U 3009. I have received report from DELMY Silveira and had the opportunity to ask questions and assume patient care with ADN student Brandy. pt sitting up in bed eating dinner. Addendum: 09/15/21 at 0120 by Wendy Lobo RN Amended: Links added.
[2021-09-14] MEDS: atorvastatin 10mg tablet PO SCH (22:18)
[2021-09-14 22:30] VITALS: BP 123/73
[2021-09-15 02:45] VITALS: BP 129/71
--- NOTE | 2021-09-15 03:34 | NUR ---
pt could not find call light, got up to [facility] [place], terell well. pt states hod no difficulty. repositioned in bed, hob elevated. watching tv now. Addendum: 09/15/21 at 0335 by Wendy Lobo RN Amended: Links added.
--- NOTE | 2021-09-15 04:17 | NUR ---
Student documentation: I have reviewed and agree with all interventions, assessments performed and documented by SALO Nava Addendum: 09/15/21 at 0417 by Wendy Lobo RN Amended: Links added.
--- NOTE | 2021-09-15 04:46 | NUR ---
up to [facility] [place] some incisional pain Addendum: 09/15/21 at 0446 by Wendy Lobo RN Amended: Links added.
[2021-09-15] MEDS: HYDROcodone/acetaminophen 10/325mg tab PO PRN ×2 (04:49→20:53)
--- NOTE | 2021-09-15 05:54 | NUR ---
is PLACED IN ROOM PT RESTING WITH EYES CLOSED. Addendum: 09/15/21 at 0555 by Wendy Lobo RN Amended: Links added.
[2021-09-15 05:57] LABS: BASOPHILS % (AUTO) 0.2 % (0-1); EOSINOPHILS # (AUTO) 0.3 X10'3 (0-0.9); HEMATOCRIT 22.5 % (35.0-45.0); HEMOGLOBIN 7.4 g/dl (12.0-16.0); LYMPHOCYTES # (AUTO) 1.2 X10'3 (1.1-4.8); LYMPHOCYTES % (AUTO) 11.9 % (21-51); MEAN CORPUSCULAR HEMOGLOBIN 30.1 PG (27.0-31.0); MEAN CORPUSCULAR HGB CONC 32.9 g/dL (33.0-36.5); MEAN CORPUSCULAR VOLUME 91.4 FL (78-98); MEAN PLATELET VOLUME 9.7 FL (7.4-10.4); MONOCYTES # (AUTO) 0.9 X10'3 (0-0.9); MONOCYTES % (AUTO) 9.1 % (2-12); NEUTROPHILS # (AUTO) 7.4 X10'3 (1.8-7.7); NEUTROPHILS % (AUTO) 75.8 % (42-75); PLATELET COUNT 216 X10'3 (140-440); RED BLOOD COUNT 2.46 X10'6 (4.20-5.60); RED CELL DISTRIBUTION WIDTH 16.6 % (11.5-14.5); WHITE BLOOD COUNT 9.8 X10'3 (4.5-11.0)
[2021-09-15 06:00] VITALS: BP 123/77
[2021-09-15 06:02] LABS: ALBUMIN 2.7 G/DL (3.4-5.0); ANION GAP 7 (8-16); BLOOD UREA NITROGEN 13 MG/DL (7-18); BUN/CREATININE RATIO 22.8 (6.6-38.0); CALCIUM 8.6 MG/DL (8.5-10.1); CHLORIDE 106 MMOL/L (99-107); CREATININE 0.57 MG/DL (0.40-0.90); GLUCOSE 130 MG/DL (70-104); POTASSIUM 3.7 MMOL/L (3.5-5.1); SODIUM 140 MMOL/L (135-145); TOTAL CARBON DIOXIDE 26.7 MMOL/L (24-32); eGFR > 90 ML/MIN
--- NOTE | 2021-09-15 06:21 | NUR ---
Problems reprioritized. Patient report given, questions answered & plan of care reviewed with RN. Addendum: 09/15/21 at 0621 by Wendy Lobo RN Amended: Links added.
[2021-09-15] MEDS: potassium Cl 20 mEq SR tablet PO SCH ×2 (08:00→23:58)
[2021-09-15] MEDS: docusate sod 100mg capsule PO SCH (08:00)
[2021-09-15] MEDS: sennosides/docusate sodium tablet PO SCH (08:00)
[2021-09-15] MEDS: furosemide 40mg/4ml inj IV SCH (08:02)
[2021-09-15] MEDS: JUVEN Smoothie Arginine/Glut./Ca2+Bmb (Juven 19.3pkt) 240ml cup PO SCH ×2 (08:02→12:30)
[2021-09-15] MEDS: lactose-reduced food (Ensure Enlive) - 237ml bottle PO SCH ×3 (08:02→18:30)
[2021-09-15] MEDS: aspirin 325mg tablet, delayed-release (Ecotrin) PO SCH (08:03)
[2021-09-15] MEDS: pantoprazole 40mg Tablet.DR PO SCH (08:03)
[2021-09-15] MEDS: magnesium Cl slow-release 64mg tablet PO SCH ×2 (08:03→20:00)
[2021-09-15] MEDS: duloxetine 30mg CAPSULE.DR PO SCH (08:03)
[2021-09-15] MEDS: lactobacillus rhamnosus 10,000 MMU CELLS/CAPSULE PO SCH ×3 (08:03→19:49)
[2021-09-15] MEDS: metoprolol tartrate 12.5mg (1/2 tablet) PO SCH (08:04)
[2021-09-15] MEDS: buPROPion SR 150mg tablet PO SCH (08:04)
[2021-09-15] MEDS: levoTHYROXINE 100mcg tablet PO SCH (08:04)
[2021-09-15] MEDS: CefTRIAXone 2gm/NS 100ml IVPB 100 ML IV SCH (08:05)
[2021-09-15] MEDS: ferrous sulfate 325mg tablet PO SCH ×3 (08:05→23:59)
--- NOTE | 2021-09-15 08:24 | NUR ---
Reassessment; Pt currently on heart healthy diet, though continues to have mostly 0% intake of meals since procedure. Pt has consumed ~60% of ONS which consists of Ensure Enlive TID and Bob Smoothies BID. Overall pt meeting approximately 46% of est energy needs and 40% of est protein needs. If pt continues w/ low appetite or unable to consume meals, would benefit from TF to help meet nutrient needs if within POC. LBM 09/14 noted to be diarrhea. Will continue to monitor. Recs: 1. Advance to Regular diet as tolerated given lipid panel WNL; encourage PO 2. chocolate/vanilla Ensure Enlive TIDWM, Bob Smoothies BIDBL. Magic cup WS 3. IF PO does not improve, consider TF if within POC 4. Bowel care per rx 5. Weekly wts Addendum: 09/15/21 at [address] Amended: Links added.
[2021-09-15] MEDS ORDERED: pneumococcal 23-VAL P-sac vacc 25 mcg/0.5ml vial IMVAC ONE (10:00)
[2021-09-15 11:00] VITALS: BP 145/78
--- NOTE | 2021-09-15 11:44 | NUR ---
iv REMOVED TELE MONITOR REMOVED AND REPORT CALLED TO ARIE LUCAS FOR TRANSFER
[2021-09-15 15:00] VITALS: BP 153/72
[2021-09-15] MEDS ORDERED: HYDR-3972 PO (15:30)
[2021-09-15] MEDS ORDERED: LOP25T PO (15:30)
[2021-09-15] MEDS ORDERED: CEFT2VIA13 IV (15:30)
[2021-09-15 18:30] VITALS: BP 150/69
--- NOTE | 2021-09-15 18:30 | NUR ---
Patient in room U 3009. I have received report from DELMY Silveira and had the opportunity to ask questions and assume patient care with DANE Conway. Addendum: 09/16/21 at 0333 by Wendy Lobo RN Amended: Links added.
--- NOTE | 2021-09-15 18:30 | NUR ---
Patient in room U 3009. I have received report from Jordana and had the opportunity to ask questions and assume patient care with DANE Conway. Addendum: 09/15/21 at 1931 by Wendy Lobo RN Amended: Links added.
--- NOTE | 2021-09-15 19:57 | NUR ---
Patient in room PCU 3009. I have received report and had the opportunity to ask questions and assume patient care.
[2021-09-15 22:00] VITALS: BP 120/74
[2021-09-16] MEDS: atorvastatin 10mg tablet PO SCH
[2021-09-16] MEDS: docusate sod 100mg capsule PO SCH ×2 (00:01→08:36)
[2021-09-16] MEDS: sennosides/docusate sodium tablet PO SCH ×2 (00:01→08:35)
--- NOTE | 2021-09-16 03:37 | NUR ---
agree with nursing assessment done by DANE Conway.
[2021-09-16 06:00] VITALS: BP_SYST 108; BP_SYST 111; BP_SYST 143; BP_DIAS 49; BP_DIAS 61
--- NOTE | 2021-09-16 06:20 | NUR ---
Problems reprioritized. Patient report given, questions answered & plan of care reviewed with rn.
--- NOTE | 2021-09-16 06:24 | NUR ---
Problems reprioritized. Patient report given, questions answered & plan of care reviewed with DELMY ALFRED. Addendum: 09/16/21 at 0624 by Wendy Lobo RN Amended: Links added.
[2021-09-16 07:07] LABS: ALBUMIN 2.7 G/DL (3.4-5.0); ANION GAP 7 (8-16); BLOOD UREA NITROGEN 13 MG/DL (7-18); BUN/CREATININE RATIO 21.7 (6.6-38.0); CALCIUM 8.7 MG/DL (8.5-10.1); CHLORIDE 104 MMOL/L (99-107); GLUCOSE 118 MG/DL (70-104); POTASSIUM 3.9 MMOL/L (3.5-5.1); SODIUM 139 MMOL/L (135-145); TOTAL CARBON DIOXIDE 27.7 MMOL/L (24-32); eGFR > 90 ML/MIN
[2021-09-16] MEDS: JUVEN Smoothie Arginine/Glut./Ca2+Bmb (Juven 19.3pkt) 240ml cup PO SCH (07:30)
[2021-09-16 07:39] LABS: MAGNESIUM 1.6 MG/DL (1.5-2.4)
[2021-09-16] MEDS: lactose-reduced food (Ensure Enlive) - 237ml bottle PO SCH (08:00)
[2021-09-16 08:30] VITALS: BP 141/69
[2021-09-16] MEDS: potassium Cl 20 mEq SR tablet PO SCH (08:35)
[2021-09-16] MEDS: aspirin 325mg tablet, delayed-release (Ecotrin) PO SCH (08:35)
[2021-09-16] MEDS: duloxetine 30mg CAPSULE.DR PO SCH (08:35)
[2021-09-16] MEDS: magnesium Cl slow-release 64mg tablet PO SCH (08:36)
[2021-09-16] MEDS: ferrous sulfate 325mg tablet PO SCH ×2 (08:36→12:04)
[2021-09-16] MEDS: metoprolol tartrate 12.5mg (1/2 tablet) PO SCH ×2 (08:36)
[2021-09-16] MEDS: lactobacillus rhamnosus 10,000 MMU CELLS/CAPSULE PO SCH ×2 (08:36→12:05)
[2021-09-16] MEDS: levoTHYROXINE 100mcg tablet PO SCH (08:36)
[2021-09-16] MEDS: pantoprazole 40mg Tablet.DR PO SCH (08:36)
[2021-09-16] MEDS: buPROPion SR 150mg tablet PO SCH (08:37)
[2021-09-16] MEDS: furosemide 40mg/4ml inj IV SCH (08:49)
[2021-09-16] MEDS: CefTRIAXone 2gm/NS 100ml IVPB 100 ML IV SCH (08:49)
[2021-09-16] MEDS: HYDROcodone/acetaminophen 10/325mg tab PO PRN (08:56)
--- NOTE | 2021-09-16 09:37 | NUR ---
Pt o2 dropped to 76% Put her back on 2.5 liters of oxygen and 02 increased to 92%
--- NOTE | 2021-09-16 10:34 | NUR ---
O2 Sat at rest on room air:_76__% If below 89%: Recovery O2 Sat at rest on _2.5__LPM:__86_%:___% via nasal cannula (mask/nasal cannula, etc..) No further documentation is necessary. If O2 Sat did not drop below 89% on room air,ambulate patient on room air. O2 Sat while ambulating on room air:___% Recovery O2 Sat while ambulating on ___LPM:___% No further documentation is necessary. If patient does not drop below 89% while ambulating, he/she does not qualify for home O2.
[2021-09-16 11:00] VITALS: BP 143/61
--- NOTE | 2021-09-16 12:39 | NUR ---
I agree with Quique Luna LVN assessment of Karon. The 1100 vitals signs by Omayra were mistakenly charted as 0600 by Quique Henry LVN.
--- NOTE | 2021-09-16 14:44 | NUR ---
Pt has been educated on all discharge instructions and medications. All questions have been answered. Rosalva brought all oxygen equipment and educated her on how to use everything. All IVs have been removed. Pt still has Picc in Rt arm for Dialysis. Family arrived 1415pm.
== END 2021-09-16 14:15 | disposition home or self-care (01) | DRG 266 ==
LOC: ER 20:54 → ED HOLD 09-06 00:49 → PCU 3S 09-06 04:00 → ICU 2S 09-10 11:43 → PCU 3S 09-13 12:40
PROVIDERS: ADMIT Family Medicine; ATTEND Family Medicine
PROC: B2111ZZ Fluoroscopy of Multiple Coronary Arteries using Low Osmolar Contrast (ICD-10-PCS; 2021-09-07)
PROC: 5A09357 Assistance with Respiratory Ventilation, Less than 24 Consecutive Hours, Continuous Positive Airway Pressure (ICD-10-PCS; 2021-09-08)
PROC: 02U Heart and Great Vessels, Supplement (ICD-10-PCS; 2021-09-10)
PROC: 02Q Heart and Great Vessels, Repair (ICD-10-PCS; 2021-09-10)
PROC: 02RF38Z Replacement of Aortic Valve with Zooplastic Tissue, Percutaneous Approach (ICD-10-PCS; 2021-09-10)
PROC: 30233R1 Transfusion of Nonautologous Platelets into Peripheral Vein, Percutaneous Approach (ICD-10-PCS; 2021-09-10)
PROC: B24BZZ4 Ultrasonography of Heart with Aorta, Transesophageal (ICD-10-PCS; 2021-09-10)
PROC: 5A1945Z Respiratory Ventilation, 24-96 Consecutive Hours (ICD-10-PCS; 2021-09-10)
PROC: 0BH17EZ Insertion of Endotracheal Airway into Trachea, Via Natural or Artificial Opening (ICD-10-PCS; 2021-09-10)
PROC: 30233N1 Transfusion of Nonautologous Red Blood Cells into Peripheral Vein, Percutaneous Approach (ICD-10-PCS; principal; 2021-09-10 11:45)
PROC: 5A09357 Assistance with Respiratory Ventilation, Less than 24 Consecutive Hours, Continuous Positive Airway Pressure (ICD-10-PCS; 2021-09-11)
PROC: 5A09357 Assistance with Respiratory Ventilation, Less than 24 Consecutive Hours, Continuous Positive Airway Pressure (ICD-10-PCS; 2021-09-12)
PROC: 5A09357 Assistance with Respiratory Ventilation, Less than 24 Consecutive Hours, Continuous Positive Airway Pressure (ICD-10-PCS; 2021-09-13)
DX: I08.0 Rheumatic disorders of both mitral and aortic valves (principal); I21.4 Non-ST elevation (NSTEMI) myocardial infarction; N17.0 Acute kidney failure with tubular necrosis; D62 Acute posthemorrhagic anemia; I50.32 Chronic diastolic (congestive) heart failure; E03.9 Hypothyroidism, unspecified; E66.01 Morbid (severe) obesity due to excess calories; Z68.38 Body mass index [BMI] 38.0-38.9, adult; F17.210 Nicotine dependence, cigarettes, uncomplicated; F41.1 Generalized anxiety disorder; I11.0 Hypertensive heart disease with heart failure; G62.9 Polyneuropathy, unspecified; Z20.822 Contact with and (suspected) exposure to COVID-19; Z85.3 Personal history of malignant neoplasm of breast; Z98.84 Bariatric surgery status; Z86.79 Personal history of other diseases of the circulatory system; Z91.018 Allergy to other foods; Z90.49 Acquired absence of other specified parts of digestive tract; Z00.6 Encounter for examination for normal comparison and control in clinical research program
CPT/HCPCS: 36569; 93306; 93312; 93325; 93454; 96374; 99285; Z7506; Z7508; 36415; 36430; 36600; 71045; 71046; 76376; 78582; 80048; 80053; 80061; 81003; 82330; 82435; 82550; 82803; 82947; 82948; 83036; 83605; 83690; 83735; 83880; 84100; 84132; 84295; 84484; 85008; 85018; 85025; 85027; 85347; 85379; 85384; 85610; 85730; 86885; 86900; 86901; 86920; 87040; 87070; 87075; 87081; 87102; 87635; 90732; 93005; 93880; 93971; 94002; 94003; 94760; 97110; 97116; 97161; 97530; 97535; 99152; A4618; A4620; A6258; A6449; A7000; A7048; A9539; A9540; C1751; C1768; C1769; C1894; G0378; J0171; J0690; J0696; J1644; J1815; J1940; J2060; J2250; J2270; J2543; J2704; J2720; J2930; J3010; J3370; J3475; J3480; J3490; J7030; J7040; J7050; J7120; P9016; P9035; P9045; P9047; Q9967

== ENCOUNTER 2021-10-21 08:06 | Day surgery (SDC) | payer BC ==
[~2021-10-21] VITALS: Ht 175.3 cm; Wt 112.5 kg
[2021-10-21] VITALS (14 sets, daily range): BP systolic 120–147; BP diastolic 60–84
[~2021-10-21 08:06] MED LIST changes: -AMLO5TAB16 PO; +ASPI-1071 PO; +CEFT2VIA13 IV; +HYDR-3972 PO; -LACT1CAP26 PO; +LOP25T PO; -LOSA100T57 PO
[2021-10-21] MEDS ORDERED: MIDAZolam 1mg/ml 10ml vial IV ONE (08:40)
[2021-10-21] MEDS ORDERED: glycopyrrolate 0.2mg/ml inj IV ONE (08:40)
[2021-10-21] MEDS ORDERED: fentaNYL/PF 50MCG/1 ML 2ML syringe IV ONE (08:40)
[2021-10-21] MEDS ORDERED: normal saline 1000ml 1,000 ML IV SCH (08:40)
[2021-10-21 10:21] LABS: BASOPHILS % (AUTO) 0.7 % (0-1); EOSINOPHILS # (AUTO) 0.1 X10'3 (0-0.9); EOSINOPHILS % (AUTO) 1.7 % (0-6); HEMATOCRIT 30.6 % (35.0-45.0); HEMOGLOBIN 9.7 g/dl (12.0-16.0); LYMPHOCYTES # (AUTO) 1.7 X10'3 (1.1-4.8); LYMPHOCYTES % (AUTO) 34.8 % (21-51); MEAN CORPUSCULAR HEMOGLOBIN 27.5 PG (27.0-31.0); MEAN CORPUSCULAR HGB CONC 31.6 g/dL (33.0-36.5); MEAN CORPUSCULAR VOLUME 87.2 FL (78-98); MEAN PLATELET VOLUME 7.8 FL (7.4-10.4); MONOCYTES # (AUTO) 0.4 X10'3 (0-0.9); NEUTROPHILS # (AUTO) 2.8 X10'3 (1.8-7.7); NEUTROPHILS % (AUTO) 55.8 % (42-75); PLATELET COUNT 258 X10'3 (140-440); RED BLOOD COUNT 3.51 X10'6 (4.20-5.60); RED CELL DISTRIBUTION WIDTH 19.2 % (11.5-14.5)
[2021-10-21 10:39] LABS: ALANINE AMINOTRANSFERASE 12 U/L (12-78); ALBUMIN 2.8 G/DL (3.4-5.0); ALBUMIN/GLOBULIN RATIO 0.8 (1.1-1.5); ALKALINE PHOSPHATASE 129 IU/L (46-116); ANION GAP 5 (8-16); ASPARTATE AMINO TRANSFERASE 11 U/L (10-37); BILIRUBIN,TOTAL 0.3 MG/DL (0.1-1.0); BLOOD UREA NITROGEN 9 MG/DL (7-18); BUN/CREATININE RATIO 15.8 (6.6-38.0); C-REACTIVE PROTEIN 2.56 MG/DL (0.0-0.5); CALCIUM 8.6 MG/DL (8.5-10.1); CHLORIDE 107 MMOL/L (99-107); CREATININE 0.57 MG/DL (0.40-0.90); GLUCOSE 99 MG/DL (70-104); SODIUM 140 MMOL/L (135-145); TOTAL CARBON DIOXIDE 27.7 MMOL/L (24-32); TOTAL PROTEIN 6.2 G/DL (6.4-8.2); eGFR > 90 ML/MIN
[2021-10-21] MEDS ORDERED: FLEC100T35 PO (10:48)
[2021-10-21] MEDS ORDERED: METH-797 PO (10:48)
[2021-10-21] MEDS ORDERED: AMLO5TAB16 PO (10:48)
[2021-10-21] MEDS ORDERED: RIVA20TA PO (10:48)
[2021-10-21] MEDS ORDERED: HYDR-3972 PO (10:51)
[2021-10-21] MEDS ORDERED: ALPR-623 PO (10:51)
[2021-10-21] MEDS ORDERED: ROC1P IV (10:51)
[2021-10-21 10:55] LABS: PLATELET ESTIMATE NORMAL
[2021-10-21 10:56] LABS: ANISOCYTOSIS 2+; ELLIPTOCYTES FEW; HYPOCHROMASIA 1+
== END 2021-10-21 13:55 | disposition home or self-care (01) ==
LOC: SSTAY O 08:06 → EDSTATUS 11:00 → SSTAY O 13:55
PROVIDERS: ATTEND Internal Medicine Cardiovascular Disease
DX: I33.0 Acute and subacute infective endocarditis (principal); I34.0 Nonrheumatic mitral (valve) insufficiency; I47.2 Ventricular tachycardia; I48.0 Paroxysmal atrial fibrillation; F32.A Depression, unspecified; E78.5 Hyperlipidemia, unspecified; G62.9 Polyneuropathy, unspecified; E03.9 Hypothyroidism, unspecified; D50.9 Iron deficiency anemia, unspecified; Z95.3 Presence of xenogenic heart valve; Z79.899 Other long term (current) drug therapy; Z98.2 Presence of cerebrospinal fluid drainage device; Z90.49 Acquired absence of other specified parts of digestive tract; Z98.890 Other specified postprocedural states; Z90.710 Acquired absence of both cervix and uterus; Z98.41 Cataract extraction status, right eye; Z98.42 Cataract extraction status, left eye; F17.210 Nicotine dependence, cigarettes, uncomplicated; Z72.89 Other problems related to lifestyle
CPT/HCPCS: 36415; 80053; 83735; 85025; 85651; 86140; 93312; 93325; 94760; 94799; J2250; J3010; J3490; J7030; 85008